=== PATIENT | female | born 1945 | race Caucasian/White ===

== ENCOUNTER 2019-02-24 19:42 | Inpatient (IN) | payer OTHER ==
--- NOTE | 2019-02-24 21:20 | PDOC ---
History of Present Illness - General Chief Complaint: Rectal Bleed Stated Complaint: GI BLEED Time Seen by Provider: 02/24/19 20:05 - History of Present Illness Initial Comments: 02/24/19 22:10 74F with pmh of thyroid nodule, hypertension presents with 3 episodes of bloody red stools today. She felt fatigued and dizzzy last night, went to get cleared for thyroid surgery the next day and was found to be hypotensive in the 80's, after which she noticed the blood in her stool and was sent to inspector cold working who saw that her platelet level was low. (does't remember how low) Patient also states that she finished a 7 day course of Ciprofloxacin last week for UTI. History of moderate alcohol drinking (a few glasses of wine a day, sometimes more, sometimes less), that she recently cut back to 2 glasses a day. Denies being currently symptomatic. 02/24/19 22:46 PCP: [facility] 02/24/19 23:46 Past History - Past Medical History Allergies/Adverse Reactions: Allergies Allergy/AdvReac Type Severity Reaction Status Date / Time codeine [Codeine] Allergy Intermediate Verified 02/24/19 20:24 Home Medications: Ambulatory Orders Aspirin Coated [Ecotrin] 81 mg PO DAILY 05/05/12 Calcitonin-[place] 3.7 ml NS DAILY 05/05/12 Calcium/Magnesium/Vit D3 [Calcium 500 mg Tablet] 1,000 mg PO DAILY 05/05/12 Cholecalciferol (Vitamin D3) [Vitamin D] 1,000 unit PO DAILY 05/05/12 Multivitamin [Multivitamins] 1 each PO DAILY 05/05/12 Timolol 0.25% [Timoptic 0.25%] 1 drop OU DAILY 05/05/12 Atorvastatin Ca [Lipitor] 10 mg PO HS 02/24/19 Nebivolol HCl [Bystolic] 10 mg PO DAILY 02/24/19 Anemia: No Asthma: No Cancer: No Cardiac Disorders: No CVA: No COPD: No CHF: No Dementia: No Diabetes: Yes (BORDERLINE) GI Disorders: No Disorders: No HTN: Yes Hypercholesterolemia: Yes Liver Disease: No Seizures: No Thyroid Disease: No - Surgical History Abdominal Surgery: Yes (GASTRIC BYPASS) Appendectomy: Yes Cardiac Surgery: No Cholecystectomy: No Lung Surgery: No Neurologic Surgery: No Orthopedic Surgery: Yes (FX LEG, RIGHT) - Suicide/Smoking/Psychosocial Hx Smoking History: Never smoked Have you smoked in the past 12 months: No Number of Cigarettes Smoked Daily: 0 If you are a former smoker, when did you quit?: 1986 Hx Alcohol Use: No Drug/Substance Use Hx: No Substance Use Type: Alcohol Hx Substance Use Treatment: No Review of Systems - Review of Systems Able to Perform ROS?: Yes Is the patient limited Georgian proficient: No Constitutional: Yes: See HPI HEENTM: No: Symptoms Reported Respiratory: No: Symptoms reported Cardiac (ROS): No: Symptoms Reported ABD/GI: Yes: See HPI : No: Symptoms Reported Musculoskeletal: No: Symptoms Reported All Other Systems: Reviewed and Negative *Physical Exam - Vital Signs Last Vital Signs Temp Pulse Resp BP Pulse Ox 97.5 F L 66 18 113/70 96 02/24/19 19:50 02/24/19 19:50 02/24/19 19:50 02/24/19 19:50 02/24/19 19:50 - Physical Exam General Appearance: Yes: Nourished, Appropriately Dressed. No: Apparent Distress HEENT: positive: EOMI, LUCIANO, Normal ENT Inspection Respiratory/Chest: positive: Lungs Clear, Normal Breath Sounds. negative: Chest Tender, Respiratory Distress Cardiovascular: positive: Regular Rhythm, Regular Rate, S1, S2 Gastrointestinal/Abdominal: positive: Normal Bowel Sounds, Flat, Soft. negative : Tender Rectal Exam: positive: normal rectal tone, heme positive stool. negative: normal exam (red blood on exam. ), hemorrhoids Musculoskeletal: positive: Normal Inspection. negative: CVA Tenderness Extremity: positive: Normal Capillary Refill, Normal Inspection, Normal Range of Motion Integumentary: positive: Normal Color, Dry, Warm Neurologic: positive: Fully Oriented, Alert, Normal Mood/Affect ED Treatment Course - LABORATORY CBC & Chemistry Diagram: 02/24/19 20:58 02/24/19 20:44 Medical Decision Making - Medical Decision Making 02/24/19 22:40 74f with pmh of thyroid nodule presents with lower GI bleed since this morning. No recent bloodwork to compare to but patient is mildly anemic with hgb of 10, platelets at 114, slightly elevated INR at 1.24. 02/24/19 22:42 Will give some fluids as patient is also prerenal, no need to transfuse at this time. Will admit for lower GI bleed with GI consult. *DC/Admit/Observation/Transfer Diagnosis at time of Disposition: Lower GI bleed - Discharge Dispostion Condition at time of disposition: Fair - Referrals - Patient Instructions - Post Discharge Activity
[2019-02-24 21:28] LABS: INR 1.24 (0.83-1.09); PROTHROMBIN TIME (PATIENT) 14.7 SEC (9.7-13.0)
[2019-02-24 21:37] LABS: BASO % 1.2 % (0-2.0); EOS % 0.4 % (0-4.5); HEMATOCRIT 28.9 % (32.4-45.2); LYMPH % 40.7 % (8-40); MCH 34.5 pg (25.7-33.7); MCHC 34.5 g/dl (32.0-36.0); MEAN CELL VOLUME 99.8 fl (80-96); MEAN PLT VOLUME 9.7 fl (7.5-11.1); MONO % 11.9 % (3.8-10.2); NEUT % 45.8 % (42.8-82.8); PLATELET COUNT 114 K/MM3 (134-434); RDW 13.2 % (11.6-15.6); WHITE BLOOD COUNT 6.3 K/mm3 (4.0-10.0)
[2019-02-24 21:48] LABS: ALBUMIN 2.7 g/dl (3.4-5.0); BILIRUBIN,TOTAL 0.7 mg/dL (0.2-1); BLOOD UREA NITROGEN 28.1 mg/dL (7-18); CALCIUM 8.2 mg/dL (8.5-10.1); CREATININE 0.6 mg/dL (0.55-1.3); POTASSIUM 4.2 mmol/L (3.5-5.1); TOT PROT 5.2 g/dl (6.4-8.2)
[2019-02-24] MEDS ORDERED: SODIUM CHLORIDE 1,000 ML IV STA (22:44)
[2019-02-24 23:03] LABS: ANISOCYTOSIS 0; MACROCYTOSIS 0; PLATELET ESTIMATE DECREASED
--- NOTE | 2019-02-24 23:10 | PDOC ---
Documentation entered by America Schuler SCRIBE, acting as scribe for Sandy Crook DO. Sandy Crook DO: This documentation has been prepared by the scribe, America Schuler SCRIBE, under my direction and personally reviewed by me in its entirety. I confirm that the documentation accurately reflects all work, treatment, procedures, and medical decision making performed by me. Attending Attestation - Resident Resident Name: Bryant Davila - ED Attending Attestation I have performed the following: I have examined & evaluated the patient, The case was reviewed & discussed with the resident, I agree w/resident's findings & plan, Exceptions are as noted - HPI HPI: 02/24/19 23:04 The patient is a 74-year-old female with a past medical history significant for HTN and HLD presents to the emergency department with bright red blood per rectum. The patient reports shes been having episodes of bright red blood stool all day, and reports leaking onto the floor. Denies fever or chills. - Physicial Exam PE: 02/24/19 22:40 GENERAL: Awake, alert, and fully oriented, in no acute distress HEAD: No signs of trauma EYES: PERRLA, EOMI, sclera anicteric, conjunctiva clear ENT: Auricles normal inspection, hearing grossly normal, nares patent, Moist mucosa NECK: Normal ROM, supple, no lymphadenopathy, JVD, or masses LUNGS: Breath sounds equal, clear to auscultation bilaterally. No wheezes, and no crackles HEART: Regular rate and rhythm. ABDOMEN: Soft, nontender. No guarding, no rebound. No masses EXTREMITIES: Normal range of motion, no lower extremity edema. NEUROLOGICAL: No focal deficit. SKIN: Warm, Dry, normal turgor, no rashes or lesions noted. - Medical Decision Making 02/24/19 23:05 I, Dr. Sandy Crook DO, attest that this document has been prepared under my direction and personally reviewed by me in its entirety. I further attest, that it accurately reflects all work, treatment, procedures and medical decision -making performed by me. 02/24/19 23:05 a/p: 74yo female scheduled for thyroid nodule surgery with an episode of low plts and LGIB today -pt states rectal bleeding today -saw heme today who dx with low plts, sent for further eval - pt unsure of plt count -pmd dr. diana -pt c/o feeling dizzy x 2 days -diarrhea yesterday, rectal bleeding today -brbr -no active bleeding in ER -no vomiting -no cp/sob -will send labs, type and screen -rectal + per resident for blood on the glove -pt will need admission for rectal bleeding and LGIB -no anticoags, no antiplts 02/24/19 23:09 plts 114 hgb 10 no active bleeding in ER, but will need admission and gi eval no abd ttp 02/24/19 23:10 microblog sent to [facility] hawk diana for admission for rectal bleeding 02/24/19 23:28 case discussed with Ginger Mehta NP who accepts pt under Dr. Diana *DC/Admit/Observation/Transfer Diagnosis at time of Disposition: Lower GI bleed - Discharge Dispostion Condition at time of disposition: Fair Decision to Admit order: Yes - Referrals Referrals: Haley Diana MD [Primary Care Provider] - - Patient Instructions - Post Discharge Activity Heart Score/ECG Review - ECG Intrepretation Comment:: 02/24/19 23:09 sinus at 68, nl axis, nl interval, no acute st/t wave findings
[2019-02-25] MEDS ORDERED: SODIUM CHLORIDE 1,000 ML IV SCH (01:15)
--- NOTE | 2019-02-25 01:22 | HP ---
Admitting History and Physical - Primary Care Physician PCP: Haley Wellington - Admission Chief Complaint: Rectal Bleeding History of Present Illness: This is a 74 y/o woman with a PMHx of HTN, HLD, Thyroid Nodule. Who presents to the ED with BRBPR 3 episodes. She felt fatigued and dizzzy last night, went to get cleared for thyroid surgery the next day and was found to be hypotensive in the 80's, after which she noticed the blood in her stool and was sent to [facility] solution architect who saw that her platelet level was low. (doesn't remember how low) Patient also states that she finished a 7 day course of Ciprofloxacin last week for UTI. History of moderate alcohol drinking (a few glasses of wine a day, sometimes more, sometimes less), that she recently cut back to 2 glasses a day. History Source: Patient Limitations to Obtaining History: No Limitations - Past Medical History Cardiovascular: Yes: HTN, Hyperlipdemia - Smoking History Smoking history: Never smoked Have you smoked in the past 12 months: No Aproximately how many cigarettes per day: 0 If you are a former smoker, when did you quit?: 1986 - Alcohol/Substance Use Hx Alcohol Use: No History of Substance Use: reports: None - Social History Usual Living Arrangement: Yes: With Spouse ADL: Independent History of Recent Travel: No Home Medications - Allergies Allergies/Adverse Reactions: Allergies Allergy/AdvReac Type Severity Reaction Status Date / Time codeine [Codeine] Allergy Intermediate Verified 02/24/19 20:24 - Home Medications Home Medications: Ambulatory Orders Aspirin Coated [Ecotrin] 81 mg PO DAILY 05/05/12 Calcitonin-[place] 3.7 ml NS DAILY 05/05/12 Calcium/Magnesium/Vit D3 [Calcium 500 mg Tablet] 1,000 mg PO DAILY 05/05/12 Cholecalciferol (Vitamin D3) [Vitamin D] 1,000 unit PO DAILY 05/05/12 Multivitamin [Multivitamins] 1 each PO DAILY 05/05/12 Timolol 0.25% [Timoptic 0.25%] 1 drop OU DAILY 05/05/12 Atorvastatin Ca [Lipitor] 10 mg PO HS 02/24/19 Nebivolol HCl [Bystolic] 10 mg PO DAILY 02/24/19 Family Disease History - Family Disease History Family History: Unable to Obtain Review of Systems - Review of Systems Constitutional: reports: No Symptoms Eyes: reports: No Symptoms HENT: reports: No Symptoms Neck: reports: No Symptoms Cardiovascular: reports: No Symptoms Respiratory: reports: No Symptoms Gastrointestinal: reports: Rectal Bleeding Genitourinary: reports: No Symptoms Breasts: reports: No Symptoms Reported Musculoskeletal: reports: No Symptoms Integumentary: reports: No Symptoms Neurological: reports: No Symptoms Endocrine: reports: No Symptoms Hematology/Lymphatic: reports: No Symptoms Psychiatric: reports: No Symptoms Physical Examination Vital Signs: Vital Signs Temperature 97.5 F L 02/24/19 19:50 Pulse Rate 66 02/24/19 19:50 Respiratory Rate 18 02/24/19 19:50 Blood Pressure 113/70 02/24/19 19:50 O2 Sat by Pulse Oximetry (%) 96 02/24/19 19:50 Constitutional: Yes: Well Nourished, No Distress, Calm Eyes: Yes: WNL, Conjunctiva Clear, EOM Intact HENT: Yes: WNL, Atraumatic, Normocephalic Neck: Yes: WNL, Supple, Trachea Midline Cardiovascular: Yes: WNL, Regular Rate and Rhythm, S1, S2 Respiratory: Yes: WNL, Regular, CTA Bilaterally Gastrointestinal: Yes: Normal Bowel Sounds, Soft, Rectal Bleeding ...Rectal Exam: Yes: Guaiac Positive Renal/: Yes: WNL Breast(s): Yes: WNL Musculoskeletal: Yes: WNL Extremities: Yes: WNL Edema: No Peripheral Pulses WNL: Yes Neurological: Yes: WNL, Alert, Oriented, Cran Nerves II-XII Intact ...Motor Strength: WNL Psychiatric: Yes: WNL, Alert, Oriented Labs: CBC, BMP 02/24/19 20:58 02/24/19 20:44 Laboratory Results - last 24 hr 02/24/19 02/24/19 02/24/19 20:44 20:44 20:58 WBC RBC Hgb Hct MCV MCH MCHC RDW Plt Count MPV Absolute Neuts (auto) Neutrophils % Neutrophils % (Manual) Band Neutrophils % Lymphocytes % Lymphocytes % (Manual) Monocytes % Monocytes % (Manual) Eosinophils % Eosinophils % (Manual) Basophils % Basophils % (Manual) Myelocytes % (Man) Promyelocytes % (Man) Blast Cells % (Manual) Nucleated RBC % Metamyelocytes Hypochromia Platelet Estimate Polychromasia Poikilocytosis Anisocytosis Microcytosis Macrocytosis PT with INR INR PTT (Actin FS) Cancelled Sodium 138 Potassium 4.2 Chloride 105 Carbon Dioxide 25 Anion Gap 8 BUN 28.1 H Creatinine 0.6 Est GFR (CKD-EPI)AfAm 105.54 Est GFR (CKD-EPI)NonAf 91.06 Random Glucose 134 H Calcium 8.2 L Total Bilirubin 0.7 AST 28 ALT 25 Alkaline Phosphatase 96 Troponin I < 0.02 Total Protein 5.2 L Albumin 2.7 L Stool Occult Blood Blood Type Antibody Screen 02/24/19 02/24/19 02/24/19 20:58 20:58 20:58 WBC 6.3 RBC 2.90 L Hgb 10.0 L Hct 28.9 L D MCV 99.8 H MCH 34.5 H MCHC 34.5 RDW 13.2 Plt Count 114 L MPV 9.7 D Absolute Neuts (auto) 2.9 Neutrophils % 45.8 D Neutrophils % (Manual) 50.5 Band Neutrophils % 0.0 Lymphocytes % 40.7 H D Lymphocytes % (Manual) 32.7 Monocytes % 11.9 H Monocytes % (Manual) 12 H Eosinophils % 0.4 Eosinophils % (Manual) 2.0 Basophils % 1.2 Basophils % (Manual) 0.0 Myelocytes % (Man) 0 Promyelocytes % (Man) 0 Blast Cells % (Manual) 0 Nucleated RBC % 0 Metamyelocytes 0 Hypochromia 0 Platelet Estimate Decreased Polychromasia 0 Poikilocytosis 0 Anisocytosis 0 Microcytosis 0 Macrocytosis 0 PT with INR 14.70 H INR 1.24 H PTT (Actin FS) 28.0 Sodium Potassium Chloride Carbon Dioxide Anion Gap BUN Creatinine Est GFR (CKD-EPI)AfAm Est GFR (CKD-EPI)NonAf Random Glucose Calcium Total Bilirubin AST ALT Alkaline Phosphatase Troponin I Total Protein Albumin Stool Occult Blood Blood Type A POSITIVE Antibody Screen Negative 02/24/19 22:05 WBC RBC Hgb Hct MCV MCH MCHC RDW Plt Count MPV Absolute Neuts (auto) Neutrophils % Neutrophils % (Manual) Band Neutrophils % Lymphocytes % Lymphocytes % (Manual) Monocytes % Monocytes % (Manual) Eosinophils % Eosinophils % (Manual) Basophils % Basophils % (Manual) Myelocytes % (Man) Promyelocytes % (Man) Blast Cells % (Manual) Nucleated RBC % Metamyelocytes Hypochromia Platelet Estimate Polychromasia Poikilocytosis Anisocytosis Microcytosis Macrocytosis PT with INR INR PTT (Actin FS) Sodium Potassium Chloride Carbon Dioxide Anion Gap BUN Creatinine Est GFR (CKD-EPI)AfAm Est GFR (CKD-EPI)NonAf Random Glucose Calcium Total Bilirubin AST ALT Alkaline Phosphatase Troponin I Total Protein Albumin Stool Occult Blood Positive Blood Type Antibody Screen Imaging - Results Chest X-ray: Pending EKG: Image Reviewed Problem List - Problems (1) Lower GI bleed Assessment/Plan: Cardiac Monitoring Stool Occult + Hgb 10 baseline 13 Monitor CBC Appreciate GI consult NPO IVF Monitor vitals Code(s): K92.2 - GASTROINTESTINAL HEMORRHAGE, UNSPECIFIED (2) HTN (hypertension) Assessment/Plan: stable Monitor BP Will hold home meds for now secondary to GIB Code(s): I10 - ESSENTIAL (PRIMARY) HYPERTENSION (3) HLD (hyperlipidemia) Assessment/Plan: Hold meds for now- GIB Code(s): E78.5 - HYPERLIPIDEMIA, UNSPECIFIED Assessment/Plan This is a 74 y/o woman with a PMHx of HTN, HLD. Admitted to Telemetry for GI Bleed for further evaluation of their emergent condition. Plan: See Problem List FEN NS@75ml/hr Replete lytes prn NPO DVT ppx OOB SCDs Hold Ac secondary to GIB Dispo: Requires Inpatient Care Addendum: Patient ambulated to bathroom unassisted and was found on the floor in the hallway spinal precautions initiated- [place] Collar applied by ED staff Fall Exam performed CT Head, CT C- Spin ordered-pending Visit type - Emergency Visit Emergency Visit: Yes ED Registration Date: 02/24/19 Care time: The patient presented to the Emergency Department on the above date and was hospitalized for further evaluation of their emergent condition. - New Patient This patient is new to me today: Yes Date on this admission: 02/25/19 - Critical Care Critical Care patient: No
[2019-02-25] MEDS ORDERED: LACTATED RINGERS SOLUTION 1000 ML INFUS.BAG IV ONE (02:28)
--- NOTE | 2019-02-25 02:29 | FALL ---
Fall Exam - Event Witnessed fall: No Location of Fall: Hallway Fall from: While ambulating - Pre-Fall Mental Status: Alert Current Medications: Current Medications Generic Name Dose Route Start Last Admin Trade Name Meng PRN Reason Stop Dose Admin Sodium Chloride 1,000 mls @ 75 mls/hr 02/25/19 01:15 02/25/19 01:51 Normal Saline - IV 75 mls/hr ASDIR RASHI Administration - Post-Fall Patient Outcome: Pain Only (neck, back) Exam Findings: AAOx2, Atraumatic, Normocephalic, Lungs- CTAB, Heart- S1, S2, Neck- TN [place] Collar, Back- TN to palpation, FROM of extremities- no shortening, Pelvic/Hip- non tender Treatment: Ice Pack Vital Signs: Vital Signs Temperature 97.5 F L 02/24/19 19:50 Pulse Rate 66 02/24/19 19:50 Respiratory Rate 18 02/24/19 19:50 Blood Pressure 113/70 02/24/19 19:50 O2 Sat by Pulse Oximetry (%) 96 02/24/19 19:50 LOC Post-Fall: Alert Identify factors for HIGH RISK for Head Injury: Known to have hit head Critical Care Total Critical Care Time (in minutes): 32 Critical Care Statement: The care of this patient involved high complexity decision making to prevent further life threatening deterioration of the patient 's condition and/or to evaluate & treat vital organ system(s) failure or risk of failure.
[2019-02-25 02:56] LABS: HEMOGLOBIN 7.9 GM/dL (10.7-15.3); WHITE BLOOD COUNT 6.7 K/mm3 (4.0-10.0)
--- NOTE | 2019-02-25 03:00 | HOSP ---
Subjective - Review of Symptoms Events since last encounter: Hospitalist Encounter Notified by RN that the patient fell. Was asked to evaluate. Patient ambulated to bathroom unassisted and was found on the floor in the hallway spinal precautions initiated- [place] Collar applied by ED staff Fall Exam performed CT Head, CT C- Spin ordered-pending Subjective: Arrived to bedside, patient is alert, awake and oriented reports attempting to go bathroom and does not recall falling. Patient is hypotensive 80/50, dark red blood note to gown, sheets and rectum. Per RN- Patient ambulated to bathroom unassisted and was found on the floor in the hallway spinal precautions initiated- [place] Collar applied by ED staff Fall Exam performed see EMR Plan: CT Head, CT C- Spin ordered-pending CBC, BMP, PT/INR stat 2 Large Bore IVs NS bolus Type N cross 2 Units PRBCs Addendum: 07:20 Arrived to ED, Day RN informed me that the patient is hypotensive 70s/30s and symptomatic- dizziness 1 unit PRBC completed 2nd unit pending Patient meets criteria for upgrade to ICU Discussed with Dr. Neto Davila, ICU resident who will come down to assess pt. Patient accepted to ICU Call placed to Dr. Khan's service NS bolus ordered Condition Guarded Physical Examination Vital Signs: Vital Signs Temperature 97.5 F L 02/24/19 19:50 Pulse Rate 66 02/24/19 19:50 Respiratory Rate 18 02/24/19 19:50 Blood Pressure 113/70 02/24/19 19:50 O2 Sat by Pulse Oximetry (%) 96 02/24/19 19:50 Hospitalist Encounter Outcome: Head CT- no acute intracranial hemorrhage, no edema, no midline shift. no mass effect or skull fx C-Spine CT- neg C- spine fx or malalignment, +enlarged right thyroid Critical Care Total Critical Care Time (in minutes): 45 Critical Care Statement: The care of this patient involved high complexity decision making to prevent further life threatening deterioration of the patient 's condition and/or to evaluate & treat vital organ system(s) failure or risk of failure.
[2019-02-25 03:07] LABS: EOS % 0.6 % (0-4.5); HEMATOCRIT 23.6 % (32.4-45.2); LYMPH % 49.8 % (8-40); MCH 33.8 pg (25.7-33.7); MCHC 33.4 g/dl (32.0-36.0); MEAN CELL VOLUME 101.2 fl (80-96); MONO % 12.3 % (3.8-10.2); NEUT % 35.3 % (42.8-82.8); PLATELET COUNT 108 K/MM3 (134-434); RBC 2.33 M/mm3 (3.60-5.2); RDW 13.5 % (11.6-15.6)
[2019-02-25 03:26] LABS: BLOOD UREA NITROGEN 29.3 mg/dL (7-18); CALCIUM 7.8 mg/dL (8.5-10.1); CREATININE 0.6 mg/dL (0.55-1.3); POTASSIUM 4.3 mmol/L (3.5-5.1)
[2019-02-25 07:27] LABS: BASO % 1.2 % (0-2.0); EOS % 0.2 % (0-4.5); HEMATOCRIT 19.8 % (32.4-45.2); LYMPH % 36.7 % (8-40); MCH 34.3 pg (25.7-33.7); MCHC 34.7 g/dl (32.0-36.0); MEAN PLT VOLUME 10.1 fl (7.5-11.1); MONO % 8.2 % (3.8-10.2); NEUT % 53.7 % (42.8-82.8); PLATELET COUNT 94 K/MM3 (134-434); RDW 13.5 % (11.6-15.6); WHITE BLOOD COUNT 7.1 K/mm3 (4.0-10.0)
[2019-02-25 07:28] LABS: CALCIUM 7.4 mg/dL (8.5-10.1); CREATININE 0.6 mg/dL (0.55-1.3); POTASSIUM 4.7 mmol/L (3.5-5.1)
[2019-02-25] MEDS ORDERED: SODIUM CHLORIDE 1,000 ML IV STA ×2 (07:35→09:19)
[2019-02-25 07:48] LABS: HEMOGLOBIN 6.9 GM/dL (10.7-15.3)
--- NOTE | 2019-02-25 07:50 | PN ---
Progress Note, Physician History of Present Illness: 74 y/o woman with a PMHx of HTN, HLD, Thyroid Nodule. Who presents to the ED with BRBPR 3 episodes. She felt fatigued and dizzzy last night and came to er pt noted with new onset thrombocytopenia and was sent to geriatrics physician Patient also states that she finished a 7 day course of Ciprofloxacin last week for UTI. - Current Medication List Current Medications: Active Medications Chlorhexidine Gluconate (Hibiclens For Decolonization -) 1 applic TP HS RASHI Sodium Chloride (Normal Saline -) 1,000 mls @ 75 mls/hr IV ASDIR RASHI Last Admin: 02/25/19 01:51 Dose: 75 mls/hr Sodium Chloride (Normal Saline -) 1,000 mls @ 1,000 mls/hr IV ASDIR STA Stop: 02/25/19 08:34 Vasopressin 50 units/ Sodium (Chloride) 100 mls @ 4 mls/hr IVPB ASDIR RASHI; Protocol Mupirocin (Bactroban Ointment (For Decolonization) -) 1 applic NS BID RASHI Stop: 03/02/19 09:59 - Objective Vital Signs: Vital Signs Temperature 97.9 F 02/25/19 06:38 Pulse Rate 73 02/25/19 06:38 Respiratory Rate 20 02/25/19 06:38 Blood Pressure 74/35 L 02/25/19 06:38 O2 Sat by Pulse Oximetry (%) 100 02/25/19 06:38 Cardiovascular: Yes: Regular Rate and Rhythm Respiratory: Yes: Regular, CTA Bilaterally Gastrointestinal: Yes: Normal Bowel Sounds, Soft. No: Tenderness ...Rectal Exam: Yes: Other (brbpr) Labs: CBC, BMP 02/25/19 06:10 02/25/19 06:10 INR, PTT INR 1.24 (0.83-1.09) H 02/24/19 20:58 Problem List - Problems (1) GI bleed Assessment/Plan: -Transfuse prbc -icu care -h/o etoh abuse--r/o ulcer/varices -ivf -ppi drip -stat gi consult--d/w dr lopez Code(s): K92.2 - GASTROINTESTINAL HEMORRHAGE, UNSPECIFIED (2) Anemia Assessment/Plan: transfuse -as above Code(s): D64.9 - ANEMIA, UNSPECIFIED (3) Hypotension Assessment/Plan: due to gi bleed transfuse maintain bp with pressers Code(s): I95.9 - HYPOTENSION, UNSPECIFIED (4) HLD (hyperlipidemia) Code(s): E78.5 - HYPERLIPIDEMIA, UNSPECIFIED (5) HTN (hypertension) Assessment/Plan: hold meds due to above Code(s): I10 - ESSENTIAL (PRIMARY) HYPERTENSION (6) Carotid stenosis Assessment/Plan: asymptomatic Code(s): I65.29 - OCCLUSION AND STENOSIS OF UNSPECIFIED CAROTID ARTERY
--- NOTE | 2019-02-25 08:21 | CONSULT ---
Consultation: REQUESTING PROVIDER: CONSULT REQUEST: We have been asked to medically evaluate this patient for ( specify). HISTORY OF PRESENT ILLNESS: REVIEW OF SYSTEMS: CONSTITUTIONAL: Absent: fever, chills, diaphoresis, generalized weakness, malaise, loss of appetite, weight change HEENT: Absent: rhinorrhea, nasal congestion, throat pain, throat swelling, difficulty swallowing, mouth swelling, ear pain, eye pain, visual changes CARDIOVASCULAR: Absent: chest pain, syncope, palpitations, irregular heart rate, lightheadedness , peripheral edema RESPIRATORY: Absent: cough, shortness of breath, dyspnea with exertion, orthopnea, wheezing, stridor, hemoptysis GASTROINTESTINAL: Absent: abdominal pain, abdominal distension, nausea, vomiting, diarrhea, constipation, melena, hematochezia GENITOURINARY: Absent: dysuria, frequency, urgency, hesitancy, hematuria, flank pain, genital pain MUSCULOSKELETAL: Absent: myalgia, arthralgia, joint swelling, back pain, neck pain SKIN: Absent: rash, itching, pallor HEMATOLOGIC/IMMUNOLOGIC: Absent: easy bleeding, easy bruising, lymphadenopathy, frequent infections ENDOCRINE: Absent: unexplained weight gain, unexplained weight loss, heat intolerance, cold intolerance NEUROLOGIC: Absent: headache, focal weakness or paresthesias, dizziness, unsteady gait, seizure, mental status changes, bladder or bowel incontinence PSYCHIATRIC: Absent: anxiety, depression, suicidal or homicidal ideation, hallucinations. PHYSICAL EXAMINATION Vital Signs - 24 hr 02/24/19 02/25/19 02/25/19 19:50 00:00 02:40 Temperature 97.5 F L 97.9 F Pulse Rate 66 69 Pulse Rate [ Right Radial] Respiratory 18 22 H Rate Blood Pressure 113/70 107/52 L Blood Pressure [Left Arm] O2 Sat by Pulse 96 97 Oximetry (%) 02/25/19 02/25/19 02/25/19 04:45 04:58 06:38 Temperature 97.4 F L 97.4 F L 97.9 F Pulse Rate 77 Pulse Rate [ 74 73 Right Radial] Respiratory 17 17 20 Rate Blood Pressure 80/54 L Blood Pressure 86/66 L 74/35 L [Left Arm] O2 Sat by Pulse 98 100 Oximetry (%) GENERAL: Awake, alert, and fully oriented, in no acute distress. HEAD: Normal with no signs of trauma. EYES: Pupils equal, round and reactive to light, extraocular movements intact, sclera anicteric, conjunctiva clear. No lid lag. EARS, NOSE, THROAT: Ears normal, nares patent, oropharynx clear without exudates. Moist mucous membranes. NECK: Normal range of motion, supple without lymphadenopathy, JVD, or masses. LUNGS: Breath sounds equal, clear to auscultation bilaterally. No wheezes, and no crackles. No accessory muscle use. HEART: Regular rate and rhythm, normal S1 and S2 without murmur, rub or gallop. ABDOMEN: Soft, nontender, not distended, normoactive bowel sounds, no guarding, no rebound, no masses. No hepatomegaly or splenomegaly. MUSCULOSKELETAL: Normal range of motion at all joints. No bony deformities or tenderness. No CVA tenderness. UPPER EXTREMITIES: 2+ pulses, warm, well-perfused. No cyanosis. No clubbing. Cap refill <2 seconds. No peripheral edema. LOWER EXTREMITIES: 2+ pulses, warm, well-perfused. No calf tenderness. No peripheral edema. NEUROLOGICAL: Cranial nerves II-XII intact. Normal speech. Normal gait. PSYCHIATRIC: Cooperative. Good eye contact. Appropriate mood and affect. SKIN: Warm, dry, normal turgor, no rashes or lesions noted. Laboratory Results - last 24 hr 02/24/19 02/24/19 02/24/19 20:44 20:44 20:58 WBC RBC Hgb Hct MCV MCH MCHC RDW Plt Count MPV Absolute Neuts (auto) Total Counted Neutrophils % Neutrophils % (Manual) Band Neutrophils % Lymphocytes % Lymphocytes % (Manual) Monocytes % Monocytes % (Manual) Eosinophils % Eosinophils % (Manual) Basophils % Basophils % (Manual) Myelocytes % (Man) Promyelocytes % (Man) Blast Cells % (Manual) Nucleated RBC % Metamyelocytes Hypochromia Platelet Estimate Polychromasia Poikilocytosis Anisocytosis Microcytosis Macrocytosis PT with INR INR PTT (Actin FS) Cancelled Sodium 138 Potassium 4.2 Chloride 105 Carbon Dioxide 25 Anion Gap 8 BUN 28.1 H Creatinine 0.6 Est GFR (CKD-EPI)AfAm 105.54 Est GFR (CKD-EPI)NonAf 91.06 Random Glucose 134 H Calcium 8.2 L Total Bilirubin 0.7 AST 28 ALT 25 Alkaline Phosphatase 96 Troponin I < 0.02 Total Protein 5.2 L Albumin 2.7 L Stool Occult Blood Blood Type Antibody Screen Crossmatch 02/24/19 02/24/19 02/24/19 20:58 20:58 20:58 WBC 6.3 RBC 2.90 L Hgb 10.0 L Hct 28.9 L D MCV 99.8 H MCH 34.5 H MCHC 34.5 RDW 13.2 Plt Count 114 L MPV 9.7 D Absolute Neuts (auto) 2.9 Total Counted Neutrophils % 45.8 D Neutrophils % (Manual) 50.5 Band Neutrophils % 0.0 Lymphocytes % 40.7 H D Lymphocytes % (Manual) 32.7 Monocytes % 11.9 H Monocytes % (Manual) 12 H Eosinophils % 0.4 Eosinophils % (Manual) 2.0 Basophils % 1.2 Basophils % (Manual) 0.0 Myelocytes % (Man) 0 Promyelocytes % (Man) 0 Blast Cells % (Manual) 0 Nucleated RBC % 0 Metamyelocytes 0 Hypochromia 0 Platelet Estimate Decreased Polychromasia 0 Poikilocytosis 0 Anisocytosis 0 Microcytosis 0 Macrocytosis 0 PT with INR 14.70 H INR 1.24 H PTT (Actin FS) 28.0 Sodium Potassium Chloride Carbon Dioxide Anion Gap BUN Creatinine Est GFR (CKD-EPI)AfAm Est GFR (CKD-EPI)NonAf Random Glucose Calcium Total Bilirubin AST ALT Alkaline Phosphatase Troponin I Total Protein Albumin Stool Occult Blood Blood Type A POSITIVE Antibody Screen Negative Crossmatch See Detail 02/24/19 02/25/19 02/25/19 22:05 02:47 02:47 WBC 6.7 RBC 2.33 L Hgb 7.9 L Hct 23.6 L D MCV 101.2 H MCH 33.8 H MCHC 33.4 RDW 13.5 Plt Count 108 L MPV 10.0 Absolute Neuts (auto) 2.4 Total Counted 100 Neutrophils % 35.3 L D Neutrophils % (Manual) 37.0 L Band Neutrophils % Lymphocytes % 49.8 H D Lymphocytes % (Manual) 50.0 H D Monocytes % 12.3 H Monocytes % (Manual) 13 H Eosinophils % 0.6 Eosinophils % (Manual) Basophils % 2.0 Basophils % (Manual) Myelocytes % (Man) Promyelocytes % (Man) Blast Cells % (Manual) Nucleated RBC % 0 Metamyelocytes Hypochromia Platelet Estimate Polychromasia Poikilocytosis Anisocytosis Microcytosis Macrocytosis PT with INR INR PTT (Actin FS) Sodium 139 Potassium 4.3 Chloride 108 H Carbon Dioxide 26 Anion Gap 5 L BUN 29.3 H Creatinine 0.6 Est GFR (CKD-EPI)AfAm 105.54 Est GFR (CKD-EPI)NonAf 91.06 Random Glucose 150 H Calcium 7.8 L Total Bilirubin AST ALT Alkaline Phosphatase Troponin I Total Protein Albumin Stool Occult Blood Positive Blood Type Antibody Screen Crossmatch 02/25/19 02/25/19 06:10 06:10 WBC 7.1 RBC 2.00 L Hgb 6.9 L* Hct 19.8 L D MCV 99.0 H MCH 34.3 H MCHC 34.7 RDW 13.5 Plt Count 94 L MPV 10.1 Absolute Neuts (auto) 3.8 Total Counted Neutrophils % 53.7 D Neutrophils % (Manual) Band Neutrophils % Lymphocytes % 36.7 D Lymphocytes % (Manual) Monocytes % 8.2 Monocytes % (Manual) Eosinophils % 0.2 Eosinophils % (Manual) Basophils % 1.2 Basophils % (Manual) Myelocytes % (Man) Promyelocytes % (Man) Blast Cells % (Manual) Nucleated RBC % 0 Metamyelocytes Hypochromia Platelet Estimate Polychromasia Poikilocytosis Anisocytosis Microcytosis Macrocytosis PT with INR INR PTT (Actin FS) Sodium 140 Potassium 4.7 Chloride 110 H Carbon Dioxide 23 Anion Gap 7 L BUN 29.0 H Creatinine 0.6 Est GFR (CKD-EPI)AfAm 105.54 Est GFR (CKD-EPI)NonAf 91.06 Random Glucose 181 H Calcium 7.4 L Total Bilirubin AST ALT Alkaline Phosphatase Troponin I Total Protein Albumin Stool Occult Blood Blood Type Antibody Screen Crossmatch Active Medications Generic Name Dose Route Start Last Admin Trade Name Freq PRN Reason Stop Dose Admin Chlorhexidine Gluconate 1 applic 02/25/19 22:00 Hibiclens For Decolonization - TP HS RASHI Sodium Chloride 1,000 mls @ 75 mls/hr 02/25/19 01:15 02/25/19 01:51 Normal Saline - IV 75 mls/hr ASDIR RASHI Administration Sodium Chloride 1,000 mls @ 1,000 mls/hr 02/25/19 07:35 02/25/19 07:35 Normal Saline - IV 02/25/19 08:34 1,000 mls/hr ASDIR STA Administration Vasopressin 50 units/ Sodium 100 mls @ 4 mls/hr 02/25/19 08:30 Chloride IVPB ASDIR RASHI Protocol 2 UNITS/HR Mupirocin 1 applic 02/25/19 10:00 Bactroban Ointment (For Decolonization) - NS 03/02/19 09:59 BID [facility] ASSESSMENT/PLAN: Dispo: We will continue to follow the patient. Thank you for this consultative opportunity. ATTENDING PHYSICIAN STATEMENT I saw and evaluated the patient. I reviewed the resident's note and discussed the case with the resident. I agree with the resident's findings and plan as documented. SUBJECTIVE: OBJECTIVE: ASSESSMENT AND PLAN:
[2019-02-25] MEDS ORDERED: VASOPRESSIN 50 UNITS in SODIUM CHLORIDE 97.5 ML IVPB SCH (08:30)
--- NOTE | 2019-02-25 08:58 | CON.GI ---
Consult Consult Specialty:: GI Referred by:: Dr Bryant Davila Reason for Consultation:: GI bleed - History of Present Illness History of Present Illness: Patient is a 74 y/o female with past medical history of HTN, HLD, Thyroid nodule. I was consulted to see patient for GI bleed. Patient states that yesterday she noted blood in her stool. After having a BM she states that she started bleeding bright red blood from her rectum which has been continuous. She had 2 syncopal episodes yesterday one at home and in the ER. Noted with drop in Hg from 10 to 6.9. Currently receiving her 2nd unit of PRBC for transfusion. Patient states her last EGD was 09/[address] Quinones and her last colonoscopy was [address] Simons. Denies chronic aspirin or NSAID use. She admits to alcohol use in the past. Denies abdominal pain, nausea, vomiting. On exam noted with bright red blood in diaper. - History Source History Provided By: Patient Limitations to Obtaining History: No Limitations - Past Medical History Cardio/Vascular: Yes: HTN, Hyperlipdemia - Past Surgical History Past Surgical History: Yes: Appendectomy, Bariatric Surgery, Hysterectomy - Alcohol/Substance Use Hx Alcohol Use: No History of Substance Use: reports: None - Smoking History Smoking history: Never smoked Have you smoked in the past 12 months: No Aproximately how many cigarettes per day: 0 If you are a former smoker, when did you quit?: 1986 - Social History ADL: Independent History of Recent Travel: No Home Medications - Allergies Allergies/Adverse Reactions: Allergies Allergy/AdvReac Type Severity Reaction Status Date / Time codeine [Codeine] Allergy Intermediate Verified 02/24/19 20:24 - Home Medications Home Medications: Ambulatory Orders Aspirin Coated [Ecotrin] 81 mg PO DAILY 05/05/12 Calcitonin-[place] 3.7 ml NS DAILY 05/05/12 Calcium/Magnesium/Vit D3 [Calcium 500 mg Tablet] 1,000 mg PO DAILY 05/05/12 Cholecalciferol (Vitamin D3) [Vitamin D] 1,000 unit PO DAILY 05/05/12 Multivitamin [Multivitamins] 1 each PO DAILY 05/05/12 Timolol 0.25% [Timoptic 0.25%] 1 drop OU DAILY 05/05/12 Atorvastatin Ca [Lipitor] 10 mg PO HS 02/24/19 Nebivolol HCl [Bystolic] 10 mg PO DAILY 02/24/19 Review of Systems - Review of Systems Constitutional: reports: Weakness Eyes: reports: No Symptoms HENT: reports: No Symptoms Neck: reports: No Symptoms Cardiovascular: reports: No Symptoms Respiratory: reports: No Symptoms Gastrointestinal: reports: Other (Rectal bleeding) Genitourinary: reports: No Symptoms Breasts: reports: No Symptoms Reported Musculoskeletal: reports: No Symptoms Integumentary: reports: No Symptoms Neurological: reports: No Symptoms Endocrine: reports: No Symptoms Hematology/Lymphatic: reports: No Symptoms Psychiatric: reports: No Symptoms Physical Exam-GI Vital Signs: Vital Signs Temperature 97.9 F 02/25/19 06:38 Pulse Rate 73 02/25/19 06:38 Respiratory Rate 20 02/25/19 06:38 Blood Pressure 74/35 L 02/25/19 06:38 O2 Sat by Pulse Oximetry (%) 100 02/25/19 06:38 Constitutional: Yes: Calm, Pallor Eyes: Yes: Conjunctiva Clear HENT: Yes: Atraumatic Cardiovascular: Yes: Regular Rate and Rhythm Respiratory: Yes: Regular, CTA Bilaterally Gastrointestinal Inspection: Yes: WNL. No: Ascites, Distention, Hernia, Scars, Other ...Auscultate: Yes: Normoactive Bowel Sounds. No: Hyperactive Bowel Sounds, Hypoactive Bowel Sounds, No Bowel Sounds, Other ...Palpate: Yes: Soft. No: Firm/Rigid, Guarding, Hepatomegaly, Mass, Pulsatile Mass, Splenomegaly, Tenderness, Tenderness, Epigastium, Tenderness, Rebound, Other ...Percussion: Yes: Tympanitic. No: Dullness, Fluid Wave, Other ...Rectal Exam: Yes: Other (rectal bleeding) Neurological: Yes: Alert Psychiatric: Yes: Alert Labs: CBC, BMP 02/25/19 06:10 02/25/19 06:10 INR, PTT INR 1.24 (0.83-1.09) H 02/24/19 20:58 Home Medication List Medication Instructions Recorded Confirmed Type Aspirin Coated [Ecotrin] 81 mg PO DAILY 05/05/12 02/24/19 History Calcitonin-[place] 3.7 ml NS DAILY 05/05/12 02/24/19 History Calcium/Magnesium/Vit D3 [Calcium 1,000 mg PO DAILY 05/05/12 02/24/19 History 500 mg Tablet] Cholecalciferol (Vitamin D3) 1,000 unit PO DAILY 05/05/12 02/24/19 History [Vitamin D] Multivitamin [Multivitamins] 1 each PO DAILY 05/05/12 02/24/19 History Timolol 0.25% [Timoptic 0.25%] 1 drop OU DAILY 05/05/12 02/24/19 History Atorvastatin Ca [Lipitor] 10 mg PO HS 02/24/19 02/24/19 History Nebivolol HCl [Bystolic] 10 mg PO DAILY 02/24/19 02/24/19 History Active Medications Generic Name Dose Route Start Last Admin Trade Name Meng PRN Reason Stop Dose Admin Chlorhexidine Gluconate 1 applic 02/25/19 22:00 Hibiclens For Decolonization - TP HS RASHI Sodium Chloride 1,000 mls @ 75 mls/hr 02/25/19 01:15 02/25/19 01:51 Normal Saline - IV 75 mls/hr ASDIR RASHI Administration Sodium Chloride 1,000 mls @ 1,000 mls/hr 02/25/19 07:35 02/25/19 07:35 Normal Saline - IV 02/25/19 08:34 1,000 mls/hr ASDIR STA Administration Vasopressin 50 units/ Sodium 100 mls @ 4 mls/hr 02/25/19 08:30 Chloride IVPB ASDIR RASHI Protocol 2 UNITS/HR Mupirocin 1 applic 02/25/19 10:00 Bactroban Ointment (For Decolonization) - NS 03/02/19 09:59 BID RASHI Problem List - Problems (1) Lower GI bleed Assessment/Plan: >Abdomen/Pelvic CTA STAT >s/p 2U PRBC transfusion >repeat CBC to monitor Hg >place NGT to LCS >pending CTA results will possibly need emergent Endoscopy Code(s): K92.2 - GASTROINTESTINAL HEMORRHAGE, UNSPECIFIED
[2019-02-25] MEDS ORDERED: CALCIUM GLUCONATE 10% - 1,000 MG/10 ML VIAL IVPUSH ONE (09:21)
[2019-02-25 09:47] VITALS: BMI 33.3
[2019-02-25] MEDS: MUPIROCIN 2% TOPICAL OINTMENT FOR DECOLONIZATION NS SCH ×2 (11:00→21:25)
--- NOTE | 2019-02-25 11:29 | PN ---
Teaching Attending Note Name of Resident: Neto Davila ATTENDING PHYSICIAN STATEMENT I saw and evaluated the patient. I reviewed the resident's note and discussed the case with the resident. I agree with the resident's findings and plan as documented. SUBJECTIVE: Pt seen and examined in the ICU. Still with dizziness/lightheadedness. No shortness of breath or chest pain. Received 3 units PRBC so far. OBJECTIVE: Vital Signs Period Temp Pulse Resp BP Sys/[place]over Pulse Ox Last 24 Hr 97.4 F-98.5 F 66-79 15-24 70-113/35-70 95-100 Intake & Output 02/22/19 02/23/19 02/24/19 02/25/19 23:59 23:59 23:59 23:59 Weight 88 kg Gen: NAD at rest Heart: RRR Lung: decreased breath sounds at the bases Abd: soft, nontender Ext: no edema CBC, BMP 02/25/19 06:10 02/25/19 06:10 Active Medications Chlorhexidine Gluconate (Hibiclens For Decolonization -) 1 applic TP HS RASHI Vasopressin 50 units/ Sodium (Chloride) 100 mls @ 4 mls/hr IVPB ASDIR RASHI; Protocol Sodium Chloride (Normal Saline -) 1,000 mls @ 75 mls/hr IV ASDIR RASHI Pantoprazole Sodium 80 mg/ (Sodium Chloride) 100 mls @ 10 mls/hr IVPB Q10H RASHI Mupirocin (Bactroban Ointment (For Decolonization) -) 1 applic NS BID RASHI Stop: 03/02/19 09:59 ASSESSMENT AND PLAN: GI Bleed Acute Blood Loss Anemia Hemorrhagic/Hypovolemic Shock h/o HTN Hyperlipidemia - transfuse PRBC - monitor CBC, coags - protonix - IVF - ensure large bore peripheral access - pressors if remains hypotensive - NPO - GI f/u - f/u CTA A/P - DVT prophylaxis - continue ICU monitoring critical care time spent in reviewing chart, evaluating patient and formulating plan 35 min
--- NOTE | 2019-02-25 13:49 | RAPID ---
Physical Examination Vital Signs: Vital Signs Temperature 97.9 F 02/25/19 06:38 Pulse Rate 73 02/25/19 08:45 Respiratory Rate 19 02/25/19 08:45 Blood Pressure 100/39 L 02/25/19 08:45 O2 Sat by Pulse Oximetry (%) 97 02/25/19 08:45 Constitutional: Yes: Well Nourished, Other Eyes: Yes: Other HENT: Yes: Other Neck: Yes: Other Cardiovascular: Yes: Other Respiratory: Yes: Other Gastrointestinal: Yes: Other ...Rectal Exam: Yes: Other Renal/: Yes: Other Breast(s): Yes: Other Musculoskeletal: Yes: Other Extremities: Yes: Other Integumentary: Yes: Other Wound/Incision: Yes: Other Neurological: Yes: Other Psychiatric: Yes: Other Labs: CBC, BMP 02/25/19 06:10 02/25/19 06:10 Rapid Response - Rapid Response Assessment: Code 99 called at 13:28 as pt was reported to have no pulse. Primary team arrived. Anesthesia team verbally requested to manage code. ACLS protocol was initiated. Please refer to code sheet for further details. ROSC achieved at 13:32 Primary team made aware. Rest as per ICU team.
--- NOTE | 2019-02-25 14:01 | EKG ---
Test Reason : Blood Pressure : / mmHG Vent. Rate : 068 BPM Atrial Rate : 068 BPM P-R Int : 128 ms QRS Dur : 082 ms QT Int : 402 ms P-R-T Axes : 016 076 047 degrees QTc Int : 427 ms NORMAL SINUS RHYTHM NONSPECIFIC ST ABNORMALITY WHEN COMPARED WITH ECG OF 23-SEP-2013 18:16, NONSPECIFIC T WAVE ABNORMALITY NOW EVIDENT IN ANTERIOR LEADS Confirmed by LETA BURTON MD ([id number]) on 02/25/2019 2:00:53 PM Referred By: Confirmed By:LETA BURTON MD
--- NOTE | 2019-02-25 14:15 | PN ---
Progress Note (short form) - Note Progress Note: During colonoscopy at around 1:28 pm, the patient became pulseless. Code was called. She was emergently intubated and chest compressions for about 2min. She also received ).4mg of Atropine and Epinephrine. She begam to breath on her own , blood pressure stabalized. She was receiving the third unit of blood. CTA result was discussed with Dr Crowley and nadine;ity of UGIB was noted. EGD-- noted to have a mucosal split with spontaneous oozing. This was clipped colonoscopy was resummed once stabalized. The right colon had clots of blood unable to visualize well. The left colon has scattered diverticula but not of them were bleeding. It is unclear were the bleeding site was. Problem List - Problems (1) Lower GI bleed Code(s): K92.2 - GASTROINTESTINAL HEMORRHAGE, UNSPECIFIED
--- NOTE | 2019-02-25 14:17 | PN ---
Progress Note (short form) - Note Progress Note: CT of abdomen-- noted to have a dilated CBD and pancreatic duct. Etiology unclear Problem List - Problems (1) Lower GI bleed Code(s): K92.2 - GASTROINTESTINAL HEMORRHAGE, UNSPECIFIED
--- NOTE | 2019-02-25 15:28 | PN ---
Progress Note (short form) - Note Progress Note: patient had rapid response during EGD bradycardic got atropine the lost pulse, code 99 chest compression got epi and then got back pulse divertuclar bleed now in icu surgery and cardiology consulted icu monitiring- geting PRBC now currently patient awake alert able to move all 4 extremities [id number] cta b/l soft nt nd no edema divertuclar bleed: icu monitirng surgical eval monitr cbc prbc NPO
[2019-02-25] MEDS ORDERED: EPINEPHrine 1:10,000 (P-F SYR) 1 MG/10 ML DISP.SYRIN ONE (16:21)
--- NOTE | 2019-02-25 17:14 | PN ---
Progress Note (short form) - Note Progress Note: Events noted and discussed with and son labs pending pt denies any chest pain at this time no further gross bleeding noted await labs d/w gi surgical consult Problem List - Problems (1) GI bleed Code(s): K92.2 - GASTROINTESTINAL HEMORRHAGE, UNSPECIFIED (2) Anemia Code(s): D64.9 - ANEMIA, UNSPECIFIED (3) Hypotension Code(s): I95.9 - HYPOTENSION, UNSPECIFIED (4) HLD (hyperlipidemia) Code(s): E78.5 - HYPERLIPIDEMIA, UNSPECIFIED (5) HTN (hypertension) Code(s): I10 - ESSENTIAL (PRIMARY) HYPERTENSION (6) Carotid stenosis Code(s): I65.29 - OCCLUSION AND STENOSIS OF UNSPECIFIED CAROTID ARTERY
[2019-02-25] MEDS ORDERED: PT OWN MED DRAWER 7, Y5N ONE (17:47)
[2019-02-25] MEDS: SODIUM CHLORIDE 1,000 ML IV SCH (18:30)
[2019-02-25] MEDS: PANTOPRAZOLE SODIUM 80 MG in SODIUM CHLORIDE 100 ML IVPB SCH ×2 (19:29→21:22)
[2019-02-25] MEDS: THIAMINE HCL 200 MG/2 ML VIAL IM SCH (19:29)
[2019-02-25 20:06] LABS: BASO % 0.9 % (0-2.0); EOS % 0.2 % (0-4.5); HEMOGLOBIN 9.7 GM/dL (10.7-15.3); LYMPH % 24.1 % (8-40); MCH 32.5 pg (25.7-33.7); MCHC 34.7 g/dl (32.0-36.0); MEAN CELL VOLUME 93.7 fl (80-96); MEAN PLT VOLUME 9.9 fl (7.5-11.1); NEUT % 64.8 % (42.8-82.8); PLATELET COUNT 82 K/MM3 (134-434); RBC 2.99 M/mm3 (3.60-5.2); RDW 15.9 % (11.6-15.6); WHITE BLOOD COUNT 10.2 K/mm3 (4.0-10.0)
--- NOTE | 2019-02-25 20:20 | CONSULT ---
Consult Consult Specialty:: Surgery Reason for Consultation:: LGIB - History of Present Illness Chief Complaint: RECTAL BLEEDING History of Present Illness: his is a 74 y/o woman with a PMHx of HTN, HLD, Thyroid Nodule. Who presents to the ED with BRBPR 3 episodes. LGIB was massive enough to result in acute anemia requiring transfusion of blood and blood products. CTA abdomen and pelvis was negative for active bleeding. CBD and pancreatic ductal dilatation noted. EGD showed mucosal split with oozing controlled by clipping. Colonoscopy showed blood clots in the right colon with no clear source of hemorrhage. Patient is currently stable without active rectal bleeding. - History Source History Provided By: Patient - Past Medical History Cardio/Vascular: Yes: HTN, Hyperlipdemia - Past Surgical History Past Surgical History: Yes: Appendectomy, Bariatric Surgery, Hysterectomy - Alcohol/Substance Use Hx Alcohol Use: No History of Substance Use: reports: None - Smoking History Smoking history: Never smoked Have you smoked in the past 12 months: No Aproximately how many cigarettes per day: 0 If you are a former smoker, when did you quit?: 1986 - Social History ADL: Independent History of Recent Travel: No Home Medications - Allergies Allergies/Adverse Reactions: Allergies Allergy/AdvReac Type Severity Reaction Status Date / Time codeine [Codeine] Allergy Intermediate Verified 02/24/19 20:24 - Home Medications Home Medications: Ambulatory Orders Aspirin Coated [Ecotrin] 81 mg PO DAILY 05/05/12 Calcitonin-[place] 3.7 ml NS DAILY 05/05/12 Calcium/Magnesium/Vit D3 [Calcium 500 mg Tablet] 1,000 mg PO DAILY 05/05/12 Cholecalciferol (Vitamin D3) [Vitamin D] 1,000 unit PO DAILY 05/05/12 Multivitamin [Multivitamins] 1 each PO DAILY 05/05/12 Timolol 0.25% [Timoptic 0.25%] 1 drop OU DAILY 05/05/12 Atorvastatin Ca [Lipitor] 10 mg PO HS 02/24/19 Nebivolol HCl [Bystolic] 10 mg PO DAILY 02/24/19 Review of Systems - Review of Systems Cardiovascular: reports: No Symptoms Respiratory: reports: No Symptoms Gastrointestinal: reports: Rectal Bleeding (not actively bleeding) Physical Exam Vital Signs: Vital Signs Temperature 97.4 F L 02/25/19 14:30 Pulse Rate 80 08/09/19 18:30 Respiratory Rate 21 H 02/25/19 19:48 Blood Pressure 131/65 02/25/19 18:30 O2 Sat by Pulse Oximetry (%) 97 02/25/19 19:48 Constitutional: Yes: Anxious HENT: Yes: Normocephalic Neck: Yes: Supple Respiratory: Yes: CTA Bilaterally Gastrointestinal: Yes: Soft, Tenderness (none) ...Rectal Exam: Yes: Deferred Labs: CBC, BMP 02/25/19 19:15 Imaging - Results Cat Scan: Report Reviewed, Image Reviewed Problem List - Problems (1) Lower GI bleed Assessment/Plan: possible diverticular bleeding Monitor Hgb/Hct IVF repeat CTA if massive LGIB recurs If positive, will require mesenteric angiogram for hemorrhage control by IR Surgical intervention if above fails further radiologic w/u for pancreatobiliary abnormality when stable Will follow. Code(s): K92.2 - GASTROINTESTINAL HEMORRHAGE, UNSPECIFIED
--- NOTE | 2019-02-25 20:37 | CONSULT ---
Consult - text type - Consultation Consultation Note: 74 y/o woman with a PMHx of HTN, HLD, Thyroid Nodule who presents to the ED with BRBPR 3 episodes. LGIB was massive enough to result in acute anemia requiring transfusion of blood and blood products. CTA abdomen and pelvis was negative for active bleeding. CBD and pancreatic ductal dilatation noted. EGD showed mucosal split with oozing controlled by clipping. Colonoscopy showed blood clots in the right colon with no clear source of hemorrhage. Patient is currently stable without active rectal bleeding. - History Source History Provided By: Patient - Past Medical History Cardio/Vascular: Yes: HTN, Hyperlipdemia - Past Surgical History Past Surgical History: Yes: Appendectomy, Bariatric Surgery, Hysterectomy - Alcohol/Substance Use Hx Alcohol Use: No History of Substance Use: reports: None - Smoking History Smoking history: Never smoked - Social History ADL: Independent - Allergies Allergies/Adverse Reactions: Allergies Allergy/AdvReac Type Severity Reaction Status Date / Time codeine [Codeine] Allergy Intermediate Verified 02/24/19 20:24 - Home Medications Home Medications: Ambulatory Orders Aspirin Coated [Ecotrin] 81 mg PO DAILY 05/05/12 Calcitonin-Hope 3.7 ml NS DAILY 05/05/12 Calcium/Magnesium/Vit D3 [Calcium 500 mg Tablet] 1,000 mg PO DAILY 05/05/12 Cholecalciferol (Vitamin D3) [Vitamin D] 1,000 unit PO DAILY 05/05/12 Multivitamin [Multivitamins] 1 each PO DAILY 05/05/12 Timolol 0.25% [Timoptic 0.25%] 1 drop OU DAILY 05/05/12 Atorvastatin Ca [Lipitor] 10 mg PO HS 02/24/19 Nebivolol HCl [Bystolic] 10 mg PO DAILY 02/24/19 Physical Exam Vital Signs: AFVSS Constitutional: Yes: Anxious HENT: Yes: Normocephalic Neck: Yes: Supple Respiratory: Yes: CTA Bilaterally Gastrointestinal: Yes: Soft, Tenderness (none) Labs/MEds reviewed A/P 74 y/o woman with a PMHx of HTN, HLD, Thyroid Nodule who presents to the ED with BRBPR 3 episodes. LGIB was massive enough to result in acute anemia requiring transfusion of blood and blood products. CTA abdomen and pelvis was negative for active bleeding. CBD and pancreatic ductal dilatation noted. EGD showed mucosal split with oozing controlled by clipping. Colonoscopy showed blood clots in the right colon with no clear source of hemorrhage. Patient is currently stable without active rectal bleeding. CTA-- Intact gastric bypass anastomotic site. Dilated CBD/ pancreatic duct. Pancreatic duct is unchanged since 2014. CBD is more prominent--needs f/u imaging R. renal cyst--needs f/u imaging Thrombocytopenia--mild will check B12/folate/LDH/flow ? ITP Transfuse platelets tokeep platelets > 80-100,000 Last dose of aspirin 2 weeks ago. no h/o NSAIDS will follow
[2019-02-25 20:40] LABS: ALBUMIN 2.4 g/dl (3.4-5.0); BILIRUBIN,TOTAL 0.9 mg/dL (0.2-1); BLOOD UREA NITROGEN 23.8 mg/dL (7-18); CALCIUM 7.5 mg/dL (8.5-10.1); CREATININE 0.6 mg/dL (0.55-1.3); MAGNESIUM 1.6 mg/dL (1.8-2.4); POTASSIUM 4.1 mmol/L (3.5-5.1); TOT PROT 4.4 g/dl (6.4-8.2)
[2019-02-25] MEDS ORDERED: CALCIUM GLUCONATE 10% - 1,000 MG/10 ML VIAL ONE (20:55)
[2019-02-25] MEDS: CHLORHEXIDINE GLUCONATE 4% CLEANSER FOR DECOLONIZATION TP SCH (21:25)
[2019-02-25] MEDS: ACETAMINOPHEN 1000 MG/100 ML VIAL (NON FORMULARY) IVPB PRN (21:45)
[2019-02-25 23:49] LABS: PLATELET ESTIMATE DECREASED
[2019-02-26 06:37] LABS: ALBUMIN 2.1 g/dl (3.4-5.0); BILIRUBIN,TOTAL 0.8 mg/dL (0.2-1); BLOOD UREA NITROGEN 19.7 mg/dL (7-18); CALCIUM 7.5 mg/dL (8.5-10.1); CREATININE 0.6 mg/dL (0.55-1.3); POTASSIUM 3.9 mmol/L (3.5-5.1)
[2019-02-26] MEDS: PANTOPRAZOLE SODIUM 80 MG in SODIUM CHLORIDE 100 ML IVPB SCH ×2 (06:37→17:25)
--- NOTE | 2019-02-26 08:41 | PN ---
Progress Note (short form) - Note Progress Note: Anesthesia /Pain Pt seen and examined S:Alert and awake comfortable O: Vital Signs Temperature 98 F 02/26/19 04:00 Pulse Rate 68 02/26/19 06:00 Respiratory Rate 21 H 02/26/19 06:00 Blood Pressure 106/43 L 02/26/19 06:00 O2 Sat by Pulse Oximetry (%) 97 02/25/19 19:48 CBC, BMP 02/26/19 05:25 A/P: Current Active Problems Anemia (Acute) Carotid stenosis (Acute) GI bleed (Acute) HLD (hyperlipidemia) (Acute) HTN (hypertension) (Acute) Hypotension (Acute) Lower GI bleed (Acute) s/p code in the endo extubated Doing well post op Continue current care Neto Etienne MD
[2019-02-26 08:50] LABS: BASO % 1.7 % (0-2.0); EOS % 1.8 % (0-4.5); HEMATOCRIT 24.3 % (32.4-45.2); HEMOGLOBIN 8.7 GM/dL (10.7-15.3); LYMPH % 27.5 % (8-40); MCH 32.6 pg (25.7-33.7); MCHC 35.7 g/dl (32.0-36.0); MEAN CELL VOLUME 91.2 fl (80-96); MEAN PLT VOLUME 9.8 fl (7.5-11.1); MONO % 10.4 % (3.8-10.2); NEUT % 58.6 % (42.8-82.8); PLATELET COUNT 86 K/MM3 (134-434); RBC 2.66 M/mm3 (3.60-5.2); RDW 16.9 % (11.6-15.6); WHITE BLOOD COUNT 5.5 K/mm3 (4.0-10.0)
--- NOTE | 2019-02-26 08:56 | PN ---
Progress Note (short form) - Note Progress Note: Pulm/CCM SUBJECTIVE: Pt seen and examined in the ICU. \ -now further bleeding -stable hemodynamics -am cbc pending OBJECTIVE: Vital Signs Temp 98 F 02/26/19 04:00 Pulse 68 02/26/19 06:00 Resp 21 H 02/26/19 06:00 BP 106/43 L 02/26/19 06:00 Pulse Ox 97 02/25/19 19:48 Intake & Output 02/25/19 02/25/19 02/26/19 11:59 23:59 11:59 Intake Total 2551 525 Balance 2551 525 Intake: IV 1100 525 Normal Saline - 1,000 ml 300 525 @ 75 mls/hr IV ASDIR RASHI Rx#:[id number] IVPB 100 Packed Cells 1050 Fresh Frozen Plasma 301 Other: Voiding Method Toilet Bedpan # Unmeasured Voids Void 1 1 Bowel Movement No Gen: NAD at rest Heart: RRR Lung: clear anterior Abd: soft, nontender Ext: no edema Neuro: awake non-focal CBC, BMP 02/26/19 05:25 Active Medications Acetaminophen (Ofirmev Injection -) 1,000 mg IVPB Q6H PRN PRN Reason: PAIN LEVEL 6-10 Last Admin: 02/25/19 21:45 Dose: 1,000 mg Albuterol/Ipratropium (Duoneb -) 1 amp NEB RQID RASHI Chlorhexidine Gluconate (Hibiclens For Decolonization -) 1 applic TP HS [facility] OF [facility] Last Admin: 02/25/19 21:25 Dose: 1 applic Vasopressin 50 units/ Sodium (Chloride) 100 mls @ 4 mls/hr IVPB ASDIR ON LICENSE OF [facility]; Protocol Sodium Chloride (Normal Saline -) 1,000 mls @ 75 mls/hr IV ASDIR RASHI Last Admin: 02/25/19 18:30 Dose: Not Given Pantoprazole Sodium 80 mg/ (Sodium Chloride) 100 mls @ 10 mls/hr IVPB Q10H ON LICENSE OF [facility] Last Admin: 02/26/19 06:37 Dose: 10 mls/hr Multivitamins/Minerals (Infuvite Adult -) 10 ml IV DAILY ON LICENSE OF [facility] Mupirocin (Bactroban Ointment (For Decolonization) -) 1 applic NS BID [facility] OF [facility] Stop: 03/02/19 09:59 Last Admin: 02/25/19 21:25 Dose: 1 applic Thiamine HCl (Vitamin B1 Injection -) 200 mg IM DAILY RASHI Last Admin: 02/25/19 19:29 Dose: 200 mg ASSESSMENT AND PLAN: GI Bleed Acute Blood Loss Anemia Hemorrhagic/Hypovolemic Shock h/o HTN Hyperlipidemia - transfuse PRBC - monitor CBC, coags - protonix - IVF - ensure large bore peripheral access - clears today - GI f/u - DVT prophylaxis - floor if repeat H/H stable critical care time spent in reviewing chart, evaluating patient and formulating plan 35 min Trisha ACNP 44
--- NOTE | 2019-02-26 09:04 | PN ---
Progress Note, Physician History of Present Illness: 74 y/o woman with a PMHx of HTN, HLD, Thyroid Nodule. Who presents to the ED with BRBPR 3 episodes. She felt fatigued and dizzzy last night and came to er pt noted with new onset thrombocytopenia and was sent to pricer Patient also states that she finished a 7 day course of Ciprofloxacin last week for UTI. Today c/o chest pain on movement c/o upper right sided back pain - Current Medication List Current Medications: Active Medications Acetaminophen (Ofirmev Injection -) 1,000 mg IVPB Q6H PRN PRN Reason: PAIN LEVEL 6-10 Last Admin: 02/25/19 21:45 Dose: 1,000 mg Albuterol/Ipratropium (Duoneb -) 1 amp NEB RQID [facility] Chlorhexidine Gluconate (Hibiclens For Decolonization -) 1 applic TP HS [facility] Last Admin: 02/25/19 21:25 Dose: 1 applic Vasopressin 50 units/ Sodium (Chloride) 100 mls @ 4 mls/hr IVPB ASDIR [facility]; Protocol Sodium Chloride (Normal Saline -) 1,000 mls @ 75 mls/hr IV ASDIR RASHI Last Admin: 02/25/19 18:30 Dose: Not Given Pantoprazole Sodium 80 mg/ (Sodium Chloride) 100 mls @ 10 mls/hr IVPB Q10H [facility] Last Admin: 02/26/19 06:37 Dose: 10 mls/hr Multivitamins/Minerals (Infuvite Adult -) 10 ml IV DAILY [facility] Mupirocin (Bactroban Ointment (For Decolonization) -) 1 applic NS BID [facility] Stop: 03/02/19 09:59 Last Admin: 02/25/19 21:25 Dose: 1 applic Thiamine HCl (Vitamin B1 Injection -) 200 mg IM DAILY [facility] Last Admin: 02/25/19 19:29 Dose: 200 mg - Objective Vital Signs: Vital Signs Temperature 98 F 02/26/19 04:00 Pulse Rate 72 02/26/19 08:00 Respiratory Rate 18 02/26/19 08:00 Blood Pressure 121/55 L 02/26/19 08:00 O2 Sat by Pulse Oximetry (%) 97 02/25/19 19:48 Cardiovascular: Yes: Regular Rate and Rhythm Respiratory: Yes: Rales (at the bases) Gastrointestinal: Yes: Normal Bowel Sounds, Soft. No: Tenderness Edema: No Neurological: Yes: Alert, Oriented. No: Pre-Existing Deficit Labs: CBC, BMP 02/26/19 05:30 02/26/19 05:25 INR, PTT INR 1.24 (0.83-1.09) H 02/24/19 20:58 Problem List - Problems (1) GI bleed Assessment/Plan: -Transfused prbc and ffp -icu care -h/o etoh abuse--no ulcer -EGD oozing --clip placed -Colon-Diverticulosis--no active bleeding -ivf -ppi drip -gi consult--d/w dr lopez Code(s): K92.2 - GASTROINTESTINAL HEMORRHAGE, UNSPECIFIED (2) Anemia Assessment/Plan: transfuse -as above Code(s): D64.9 - ANEMIA, UNSPECIFIED (3) Hypotension Assessment/Plan: due to gi bleed transfused stble bp now Code(s): I95.9 - HYPOTENSION, UNSPECIFIED (4) HLD (hyperlipidemia) Code(s): E78.5 - HYPERLIPIDEMIA, UNSPECIFIED (5) HTN (hypertension) Assessment/Plan: hold meds due to above Code(s): I10 - ESSENTIAL (PRIMARY) HYPERTENSION (6) Carotid stenosis Assessment/Plan: asymptomatic Code(s): I65.29 - OCCLUSION AND STENOSIS OF UNSPECIFIED CAROTID ARTERY (7) Chest pain Assessment/Plan: maybe due to compresion troponin mild elevated--maybe due to demand ischemia vs compressions cardio Code(s): R07.9 - CHEST PAIN, UNSPECIFIED (8) Troponin level elevated Assessment/Plan: as above Code(s): R74.8 - ABNORMAL LEVELS OF OTHER SERUM ENZYMES (9) Back pain Assessment/Plan: maybe muscular vs atelectasis nebs r/o pe--pna--CTA Code(s): M54.9 - DORSALGIA, UNSPECIFIED
[2019-02-26] MEDS ORDERED: PT OWN MED DRAWER 7, Y5N ONE ×3 (09:09→17:19)
[2019-02-26] MEDS: MULTIVIT INJ. ADULT COMBO WITH VIT K 1 COMBO 10 ML VIAL IV SCH ×2 (09:29→13:29)
[2019-02-26] MEDS: THIAMINE HCL 200 MG/2 ML VIAL IM SCH (09:30)
[2019-02-26] MEDS: MUPIROCIN 2% TOPICAL OINTMENT FOR DECOLONIZATION NS SCH ×2 (09:31→21:38)
[2019-02-26] MEDS: ALBUTEROL SO4 2.5/IPRATROPIUM 0.5 INH SOL 3 ML VIAL.NEB. NEB SCH ×3 (11:00→20:22)
[2019-02-26 11:41] LABS: ANISOCYTOSIS 0; MACROCYTOSIS 0; OVALOCYTE 1+; PLATELET ESTIMATE DECREASED
[2019-02-26] MEDS: SODIUM CHLORIDE 1,000 ML IV SCH ×2 (13:29→21:38)
--- NOTE | 2019-02-26 13:41 | PN ---
Progress Note, Physician History of Present Illness: Denies recurrence of LGIB Tolerating clear liquid diet - Current Medication List Current Medications: Active Medications Acetaminophen (Ofirmev Injection -) 1,000 mg IVPB Q6H PRN PRN Reason: PAIN LEVEL 6-10 Last Admin: 02/25/19 21:45 Dose: 1,000 mg Albuterol/Ipratropium (Duoneb -) 1 amp NEB RQID [facility] Last Admin: 02/26/19 11:00 Dose: 1 amp Chlorhexidine Gluconate (Hibiclens For Decolonization -) 1 applic TP HS [facility] Last Admin: 02/25/19 21:25 Dose: 1 applic Sodium Chloride (Normal Saline -) 1,000 mls @ 75 mls/hr IV ASDIR [facility] Last Admin: 02/26/19 13:29 Dose: 75 mls/hr Pantoprazole Sodium 80 mg/ (Sodium Chloride) 100 mls @ 10 mls/hr IVPB Q10H [facility] Last Admin: 02/26/19 06:37 Dose: 10 mls/hr Multivitamins/Minerals (Infuvite Adult -) 10 ml IV DAILY [facility] Last Admin: 02/26/19 13:29 Dose: Not Given Mupirocin (Bactroban Ointment (For Decolonization) -) 1 applic NS BID [facility] Stop: 03/02/19 09:59 Last Admin: 02/26/19 09:31 Dose: 1 applic Thiamine HCl (Vitamin B1 Injection -) 200 mg IM DAILY [facility] Last Admin: 02/26/19 09:30 Dose: 200 mg - Objective Vital Signs: Vital Signs Temperature 97.7 F 02/26/19 12:00 Pulse Rate 72 02/26/19 12:00 Respiratory Rate 18 02/26/19 12:00 Blood Pressure 107/56 L 02/26/19 12:00 O2 Sat by Pulse Oximetry (%) 97 02/26/19 09:00 Gastrointestinal: Yes: Soft, Tenderness (none) Labs: CBC, BMP 02/26/19 05:30 02/26/19 05:25 INR, PTT INR 1.24 (0.83-1.09) H 02/24/19 20:58 Problem List - Problems (1) Lower GI bleed Assessment/Plan: LGIB seems to have resolved Drop in Hgb/Hct may be dilutional/HGB drift Plan of mgt as previously recommended Code(s): K92.2 - GASTROINTESTINAL HEMORRHAGE, UNSPECIFIED
[2019-02-26 14:43] LABS: HEMATOCRIT 25.7 % (32.4-45.2); HEMOGLOBIN 8.9 GM/dL (10.7-15.3); MCH 31.9 pg (25.7-33.7); MCHC 34.5 g/dl (32.0-36.0); MEAN CELL VOLUME 92.5 fl (80-96); MEAN PLT VOLUME 9.2 fl (7.5-11.1); PLATELET COUNT 93 K/MM3 (134-434); RBC 2.78 M/mm3 (3.60-5.2); RDW 16.7 % (11.6-15.6); WHITE BLOOD COUNT 5.4 K/mm3 (4.0-10.0)
[2019-02-26] MEDS: ACETAMINOPHEN 1000 MG/100 ML VIAL (NON FORMULARY) IVPB PRN (15:17)
--- NOTE | 2019-02-26 15:17 | EKG ---
Test Reason : Blood Pressure : / mmHG Vent. Rate : 063 BPM Atrial Rate : 063 BPM P-R Int : 152 ms QRS Dur : 088 ms QT Int : 456 ms P-R-T Axes : 067 086 065 degrees QTc Int : 466 ms SINUS RHYTHM WITH PREMATURE SUPRAVENTRICULAR COMPLEXES LOW VOLTAGE QRS BORDERLINE ECG WHEN COMPARED WITH ECG OF 25-FEB-2019 14:59, PREMATURE SUPRAVENTRICULAR COMPLEXES ARE NOW PRESENT VENT. RATE HAS DECREASED BY 31 BPM NONSPECIFIC T WAVE ABNORMALITY NO LONGER EVIDENT IN INFERIOR LEADS Confirmed by MD Ronn, David ([id number]) on 02/26/2019 3:17:05 PM Referred By: Maru QUIGLEY Confirmed By:David Brody MD
--- NOTE | 2019-02-26 15:20 | EKG ---
Test Reason : Blood Pressure : / mmHG Vent. Rate : 094 BPM Atrial Rate : 094 BPM P-R Int : 138 ms QRS Dur : 084 ms QT Int : 376 ms P-R-T Axes : 076 107 034 degrees QTc Int : 470 ms NORMAL SINUS RHYTHM RIGHTWARD AXIS NONSPECIFIC T WAVE ABNORMALITY ABNORMAL ECG WHEN COMPARED WITH ECG OF 24-FEB-2019 21:15, QRS AXIS SHIFTED RIGHT NONSPECIFIC T WAVE ABNORMALITY, WORSE IN INFERIOR LEADS Confirmed by MD Ronn, David ([id number]) on 02/26/2019 3:19:50 PM Referred By: ELIAN SANTIZO Confirmed By:David Brody MD
--- NOTE | 2019-02-26 17:00 | PN ---
Progress Note, Physician - Current Medication List Current Medications: Active Medications Acetaminophen (Ofirmev Injection -) 1,000 mg IVPB Q6H PRN PRN Reason: PAIN LEVEL 6-10 Last Admin: 02/26/19 15:17 Dose: 1,000 mg Albuterol/Ipratropium (Duoneb -) 1 amp NEB RQID [facility] Last Admin: 02/26/19 16:06 Dose: 1 amp Chlorhexidine Gluconate (Hibiclens For Decolonization -) 1 applic TP HS [facility] Last Admin: 02/25/19 21:25 Dose: 1 applic Sodium Chloride (Normal Saline -) 1,000 mls @ 75 mls/hr IV ASDIR [facility]ASH[facility] Last Admin: 02/26/19 13:29 Dose: 75 mls/hr Pantoprazole Sodium 80 mg/ (Sodium Chloride) 100 mls @ 10 mls/hr IVPB Q10H [facility] Last Admin: 02/26/19 06:37 Dose: 10 mls/hr Multivitamins/Minerals (Infuvite Adult -) 10 ml IV DAILY [facility] Last Admin: 02/26/19 13:29 Dose: Not Given Mupirocin (Bactroban Ointment (For Decolonization) -) 1 applic NS BID [facility] Stop: 03/02/19 09:59 Last Admin: 02/26/19 09:31 Dose: 1 applic Thiamine HCl (Vitamin B1 Injection -) 200 mg IM DAILY [facility] Last Admin: 02/26/19 09:30 Dose: 200 mg - Objective Vital Signs: Vital Signs Temperature 97.7 F 02/26/19 12:00 Pulse Rate 79 02/26/19 16:00 Respiratory Rate 18 02/26/19 16:00 Blood Pressure 114/52 L 02/26/19 16:00 O2 Sat by Pulse Oximetry (%) 97 02/26/19 09:00 Constitutional: Yes: No Distress Eyes: Yes: Conjunctiva Clear Cardiovascular: Yes: Regular Rate and Rhythm Respiratory: Yes: CTA Bilaterally Gastrointestinal: Yes: Soft. No: Distention, Tenderness, Epigastrium Edema: No Labs: CBC, BMP 02/26/19 14:33 02/26/19 05:25 INR, PTT INR 1.24 (0.83-1.09) H 02/24/19 20:58 Assessment/Plan 74F with HTN, HLD, Thyroid Nodule, hx gastric bypass admitted with LGIB, requiring transfusions. CTA abdomen and pelvis was negative for active bleeding. CBD and pancreatic ductal dilatation noted. EGD showed mucosal split with oozing controlled by clipping. Colonoscopy showed blood clots in the right colon with no clear source of hemorrhage. Imaging for more prominent CBC. Plts 80s, stable. Coags normal. No bleeding. Awaiting b12, folate, iron studies, peripheral flow, LDH
--- NOTE | 2019-02-26 17:24 | PN.GI ---
GI Progress Note Subjective: GI NOte ( covering Dr Khan); Fortunately no bleeding today. Has anticipated chest soreness from yesterday's events but no abdominal pain. Tolerating clear liquids - Objective Vital Signs: Vital Signs Temperature 97.7 F 02/26/19 12:00 Pulse Rate 79 02/26/19 16:00 Respiratory Rate 18 02/26/19 16:00 Blood Pressure 114/52 L 02/26/19 16:00 O2 Sat by Pulse Oximetry (%) 97 02/26/19 09:00 Laboratory Tests 02/25/19 02/25/19 02/26/19 06:10 19:15 05:30 Hgb 6.9 L* 9.7 L 8.7 L 02/26/19 14:33 Hgb 8.9 L Constitutional: No Distress ...Auscultate: Yes: Normoactive Bowel Sounds ...Palpate: Yes: Soft, Other (nontender) Labs: CBC, BMP 02/26/19 14:33 02/26/19 05:25 INR, PTT INR 1.24 (0.83-1.09) H 02/24/19 20:58 Assessment/Plan Assessment : - Fortunately the bleeding appears to have stopped. A right colon diverticular bleed is statistically the most likely etiology as no definitive UGI source was found. She could alternatively have bleeding from smal bawel vascular ectasias and should ideally have capsule endoscopy after discharge Plan: -- Advance to full liquids -- Serial CBCs The situation was discussed with the patient, her and son Problem List - Problems (1) Diverticular hemorrhage Code(s): K57.31 - DVRTCLOS OF LG INT W/O PERFORATION OR ABSCESS W BLEEDING (2) Anemia Code(s): D64.9 - ANEMIA, UNSPECIFIED (3) GI bleed Code(s): K92.2 - GASTROINTESTINAL HEMORRHAGE, UNSPECIFIED (4) HLD (hyperlipidemia) Code(s): E78.5 - HYPERLIPIDEMIA, UNSPECIFIED (5) HTN (hypertension) Code(s): I10 - ESSENTIAL (PRIMARY) HYPERTENSION
--- NOTE | 2019-02-26 17:49 | CON.CARD ---
Consult Consult Specialty:: Cardiology Reason for Consultation:: Hypotension - History of Present Illness Chief Complaint: Presently comfortable History of Present Illness: This is a 74 y/o woman with a PMHx of HTN, HLD, Thyroid Nodule. Who presents to the ED with BRBPR 3 episodes. She felt fatigued and dizzzy last night, went to get cleared for thyroid surgery the next day and was found to be hypotensive in the 80's, after which she noticed the blood in her stool and was sent to clinical quality analyst who saw that her platelet level was low. (doesn't remember how low ) Patient also states that she finished a 7 day course of Ciprofloxacin last week for UTI. - Past Medical History Cardio/Vascular: Yes: HTN, Hyperlipdemia - Past Surgical History Past Surgical History: Yes: Appendectomy, Bariatric Surgery, Hysterectomy - Alcohol/Substance Use Hx Alcohol Use: No History of Substance Use: reports: None - Smoking History Smoking history: Never smoked Have you smoked in the past 12 months: No Aproximately how many cigarettes per day: 0 If you are a former smoker, when did you quit?: 1986 - Social History ADL: Independent History of Recent Travel: No Home Medications - Allergies Allergies/Adverse Reactions: Allergies Allergy/AdvReac Type Severity Reaction Status Date / Time codeine [Codeine] Allergy Intermediate Verified 02/24/19 20:24 - Home Medications Home Medications: Ambulatory Orders Aspirin Coated [Ecotrin] 81 mg PO DAILY 05/05/12 Calcitonin-[place] 3.7 ml NS DAILY 05/05/12 Calcium/Magnesium/Vit D3 [Calcium 500 mg Tablet] 1,000 mg PO DAILY 05/05/12 Cholecalciferol (Vitamin D3) [Vitamin D] 1,000 unit PO DAILY 05/05/12 Multivitamin [Multivitamins] 1 each PO DAILY 05/05/12 Timolol 0.25% [Timoptic 0.25%] 1 drop OU DAILY 05/05/12 Atorvastatin Ca [Lipitor] 10 mg PO HS 02/24/19 Nebivolol HCl [Bystolic] 10 mg PO DAILY 02/24/19 Vital Signs: Vital Signs Temperature 97.7 F 02/26/19 12:00 Pulse Rate 79 02/26/19 16:00 Respiratory Rate 18 02/26/19 16:00 Blood Pressure 114/52 L 02/26/19 16:00 O2 Sat by Pulse Oximetry (%) 97 02/26/19 09:00 Constitutional: Yes: No Distress Eyes: Yes: WNL HENT: Yes: WNL Neck: Yes: WNL Respiratory: Yes: WNL, CTA Bilaterally Gastrointestinal: Yes: Normal Bowel Sounds, Soft Cardiovascular: Yes: Regular Rate and Rhythm Heart Sounds: Yes: S1, S2 Extremities: Yes: WNL Edema: No Neurological: Yes: Alert, Oriented - Other Data Labs, Other Data: CBC, BMP 02/26/19 14:33 02/26/19 05:25 INR, PTT INR 1.24 (0.83-1.09) H 02/24/19 20:58 Troponin, BNP 02/25/19 02/26/19 19:15 05:25 Troponin I 0.10 H 0.06 H Troponin, BNP 02/25/19 02/26/19 19:15 05:25 Troponin I 0.10 H 0.06 H Assessment/Plan 74 y/o woman with a PMHx of HTN, HLD, Thyroid Nodule. Who presents to the ED with BRBPR 3 episodes. She felt fatigued and dizzzy last night, went to get cleared for thyroid surgery the next day and was found to be hypotensive in the 80's, after which she noticed the blood in her stool and was sent to clinical quality analyst who saw that her platelet level was low. (doesn't remember how low ) Patient also states that she finished a 7 day course of Ciprofloxacin last week for UTI. Hypotension secondary to GI bleeding BP now 144/52 mmHg Continue to hold all antihypertensive medications Trops noted 0.10 and 0.06 EKG NSR at 63 BPM with no acute changes The troponin leak is likely secondary to demand ischemia secondary to severe anemia. When stable as an outpatient, she should have a stress test.
[2019-02-26] MEDS: CHLORHEXIDINE GLUCONATE 4% CLEANSER FOR DECOLONIZATION TP SCH (21:37)
[2019-02-27] MEDS: PANTOPRAZOLE SODIUM 80 MG in SODIUM CHLORIDE 100 ML IVPB SCH (03:30)
[2019-02-27 06:36] LABS: BASO % 2.4 % (0-2.0); HEMATOCRIT 23.2 % (32.4-45.2); HEMOGLOBIN 8.4 GM/dL (10.7-15.3); LYMPH % 30.9 % (8-40); MCH 32.6 pg (25.7-33.7); MEAN CELL VOLUME 90.6 fl (80-96); MEAN PLT VOLUME 9.3 fl (7.5-11.1); MONO % 9.2 % (3.8-10.2); NEUT % 54.5 % (42.8-82.8); PLATELET COUNT 92 K/MM3 (134-434); RBC 2.57 M/mm3 (3.60-5.2); WHITE BLOOD COUNT 4.8 K/mm3 (4.0-10.0)
[2019-02-27] MEDS: ALBUTEROL SO4 2.5/IPRATROPIUM 0.5 INH SOL 3 ML VIAL.NEB. NEB SCH ×4 (07:30→21:15)
--- NOTE | 2019-02-27 07:49 | PN ---
Progress Note (short form) - Note Progress Note: Pulm/CCM SUBJECTIVE: Pt seen and examined in the ICU. -no further bleeding - advancing diet, in for bed on floor. OBJECTIVE: Vital Signs Temp 98 F 02/27/19 06:00 Pulse 83 02/27/19 06:00 Resp 24 H 02/27/19 06:00 BP 124/60 02/27/19 06:00 Pulse Ox 97 02/26/19 19:57 Intake & Output 02/26/19 02/26/19 02/27/19 11:59 23:59 11:59 Intake Total 525 2921 220 Balance 525 2921 220 Intake: IV 525 750 100 Normal Saline - 1,000 ml 525 750 100 @ 75 mls/hr IV ASDIR RASHI Rx#:[id number] IVPB 220 120 Oral 600 Packed Cells 1050 Fresh Frozen Plasma 301 Other: Voiding Method Toilet Toilet # Unmeasured Voids Void 1 1 2 Bowel Movement No No Gen: NAD at rest Heart: RRR Lung: clear bilaterally, tender to palpation across chest 2/2 compressions Abd: soft, nontender, + BS Ext: no edema Neuro: awake non-focal, no distress CBC, BMP 02/27/19 05:40 02/26/19 05:25 Current Medications Acetaminophen (Ofirmev Injection -) 1,000 mg IVPB Q6H PRN PRN Reason: PAIN LEVEL 6-10 Last Admin: 02/26/19 15:17 Dose: 1,000 mg Albuterol/Ipratropium (Duoneb -) 1 amp NEB RQID [facility] Last Admin: 02/26/19 20:22 Dose: 1 amp Chlorhexidine Gluconate (Hibiclens For Decolonization -) 1 applic TP HS [facility] Last Admin: 02/26/19 21:37 Dose: 1 applic Sodium Chloride (Normal Saline -) 1,000 mls @ 75 mls/hr IV ASDIR RASHI Last Admin: 02/26/19 21:38 Dose: 75 mls/hr Pantoprazole Sodium 80 mg/ (Sodium Chloride) 100 mls @ 10 mls/hr IVPB Q10H [facility] Last Admin: 02/27/19 03:30 Dose: 10 mls/hr Multivitamins/Minerals (Infuvite Adult -) 10 ml IV DAILY [facility] Last Admin: 02/26/19 13:29 Dose: Not Given Mupirocin (Bactroban Ointment (For Decolonization) -) 1 applic NS BID [facility] Stop: 03/02/19 09:59 Last Admin: 02/26/19 21:38 Dose: 1 applic Thiamine HCl (Vitamin B1 Injection -) 200 mg IM DAILY [facility] Last Admin: 02/26/19 09:30 Dose: 200 mg ASSESSMENT AND PLAN: GI Bleed Acute Blood Loss Anemia Hemorrhagic/Hypovolemic Shock h/o HTN Hyperlipidemia - monitor CBC, coags - protonix as per GI - ensure large bore peripheral access - cont to advance diet - GI f/u, out pt capsule study - DVT prophylaxis - ok for floor critical care time spent in reviewing chart, evaluating patient and formulating plan 35 min Trisha ACNP 44
[2019-02-27] MEDS ORDERED: ACETAMINOPHEN 325 MG TABLET (FP) PO PRN (07:55)
--- NOTE | 2019-02-27 09:52 | PN ---
Progress Note, Physician History of Present Illness: 74 y/o woman with a PMHx of HTN, HLD, Thyroid Nodule. Who presents to the ED with BRBPR 3 episodes. She felt fatigued and dizzzy last night and came to er pt noted with new onset thrombocytopenia and was sent to dental technology advisor Patient also states that she finished a 7 day course of Ciprofloxacin last week for UTI. Today c/o chest pain on movement c/o upper right sided back pain - Current Medication List Current Medications: Active Medications Acetaminophen (Tylenol -) 650 mg PO Q4H PRN PRN Reason: MODERATE PAIN Albuterol/Ipratropium (Duoneb -) 1 amp NEB RQID [facility] Last Admin: 02/27/19 07:30 Dose: 1 amp Chlorhexidine Gluconate (Hibiclens For Decolonization -) 1 applic TP HS [facility] Last Admin: 02/26/19 21:37 Dose: 1 applic Sodium Chloride (Normal Saline -) 1,000 mls @ 75 mls/hr IV ASDIR [facility] Last Admin: 02/26/19 21:38 Dose: 75 mls/hr Pantoprazole Sodium 80 mg/ (Sodium Chloride) 100 mls @ 10 mls/hr IVPB Q10H [facility] Last Admin: 02/27/19 03:30 Dose: 10 mls/hr Multivitamins/Minerals (Infuvite Adult -) 10 ml IV DAILY [facility] Last Admin: 02/26/19 13:29 Dose: Not Given Mupirocin (Bactroban Ointment (For Decolonization) -) 1 applic NS BID [facility] Stop: 03/02/19 09:59 Last Admin: 02/26/19 21:38 Dose: 1 applic Thiamine HCl (Vitamin B1 Injection -) 200 mg IM DAILY [facility] Last Admin: 02/26/19 09:30 Dose: 200 mg - Objective Vital Signs: Vital Signs Temperature 98.6 F 02/27/19 08:00 Pulse Rate 80 02/27/19 08:00 Respiratory Rate 24 H 02/27/19 08:00 Blood Pressure 124/56 L 02/27/19 08:00 O2 Sat by Pulse Oximetry (%) 98 02/27/19 09:00 Cardiovascular: Yes: Regular Rate and Rhythm Respiratory: Yes: Rales (at the bases) Gastrointestinal: Yes: Normal Bowel Sounds, Soft. No: Tenderness Labs: CBC, BMP 02/27/19 05:40 02/26/19 05:25 INR, PTT INR 1.24 (0.83-1.09) H 02/24/19 20:58 Problem List - Problems (1) GI bleed Assessment/Plan: -Transfused prbc and ffp -icu care -h/o etoh abuse--no ulcer -EGD oozing --clip placed -Colon-Diverticulosis--no active bleeding -ivf -ppi drip -gi consult--d/w dr lopez Code(s): K92.2 - GASTROINTESTINAL HEMORRHAGE, UNSPECIFIED (2) Anemia Assessment/Plan: transfuse -as above Code(s): D64.9 - ANEMIA, UNSPECIFIED (3) Hypotension Assessment/Plan: due to gi bleed transfused stble bp now Code(s): I95.9 - HYPOTENSION, UNSPECIFIED (4) HLD (hyperlipidemia) Code(s): E78.5 - HYPERLIPIDEMIA, UNSPECIFIED (5) HTN (hypertension) Assessment/Plan: hold meds due to above Code(s): I10 - ESSENTIAL (PRIMARY) HYPERTENSION (6) Carotid stenosis Assessment/Plan: asymptomatic Code(s): I65.29 - OCCLUSION AND STENOSIS OF UNSPECIFIED CAROTID ARTERY (7) Chest pain Assessment/Plan: maybe due to compresion troponin mild elevated--maybe due to demand ischemia vs compressions cardio noted stres test as outpatient Code(s): R07.9 - CHEST PAIN, UNSPECIFIED (8) Troponin level elevated Assessment/Plan: as above Code(s): R74.8 - ABNORMAL LEVELS OF OTHER SERUM ENZYMES (9) Back pain Assessment/Plan: maybe muscular vs atelectasis nebs -CTA--cancelled -cxr Code(s): M54.9 - DORSALGIA, UNSPECIFIED
[2019-02-27] MEDS: MULTIVIT INJ. ADULT COMBO WITH VIT K 1 COMBO 10 ML VIAL IV SCH (09:56)
[2019-02-27] MEDS: THIAMINE HCL 200 MG/2 ML VIAL IM SCH (09:57)
[2019-02-27] MEDS: PANTOPRAZOLE 40 MG TABLET (FP) PO SCH ×2 (10:00→21:18)
[2019-02-27] MEDS: MUPIROCIN 2% TOPICAL OINTMENT FOR DECOLONIZATION NS SCH ×2 (10:00→21:18)
[2019-02-27 11:29] LABS: ANISOCYTOSIS 0; MACROCYTOSIS 0; PLATELET ESTIMATE DECREASED
[2019-02-27 14:56] LABS: HEMATOCRIT 26.9 % (32.4-45.2); HEMOGLOBIN 9.2 GM/dL (10.7-15.3); MCH 32.2 pg (25.7-33.7); MCHC 34.1 g/dl (32.0-36.0); MEAN CELL VOLUME 94.2 fl (80-96); MEAN PLT VOLUME 8.9 fl (7.5-11.1); PLATELET COUNT 91 K/MM3 (134-434); RBC 2.85 M/mm3 (3.60-5.2); WHITE BLOOD COUNT 5.9 K/mm3 (4.0-10.0)
--- NOTE | 2019-02-27 16:24 | PN.GI ---
GI Progress Note Subjective: GI NOte ( covering Dr. Khan): NO BMs today. Hb stable. No pain - Objective Vital Signs: Vital Signs Temperature 98.6 F 02/27/19 14:00 Pulse Rate 91 H 02/27/19 14:00 Respiratory Rate 23 H 02/27/19 14:00 Blood Pressure 118/53 L 02/27/19 14:00 O2 Sat by Pulse Oximetry (%) 98 02/27/19 09:00 Laboratory Tests 02/25/19 02/26/19 02/26/19 19:15 05:25 14:33 Hgb 8.9 L BUN 23.8 H 19.7 H Creatinine 0.6 0.6 02/27/19 02/27/19 05:40 14:45 Hgb 8.4 L 9.2 L BUN Creatinine Constitutional: Calm ...Auscultate: Yes: Normoactive Bowel Sounds ...Palpate: Yes: Soft, Other (nontender) Labs: CBC, BMP 02/27/19 14:45 02/26/19 05:25 INR, PTT INR 1.24 (0.83-1.09) H 02/24/19 20:58 Assessment/Plan Assessment : - Bleeding appears to have stopped. Plan: -- Advance to soft diet -- Advised capsule endoscopy as outpatient Problem List - Problems (1) Diverticular hemorrhage Code(s): K57.31 - DVRTCLOS OF LG INT W/O PERFORATION OR ABSCESS W BLEEDING (2) Anemia Code(s): D64.9 - ANEMIA, UNSPECIFIED (3) GI bleed Code(s): K92.2 - GASTROINTESTINAL HEMORRHAGE, UNSPECIFIED (4) HLD (hyperlipidemia) Code(s): E78.5 - HYPERLIPIDEMIA, UNSPECIFIED (5) HTN (hypertension) Code(s): I10 - ESSENTIAL (PRIMARY) HYPERTENSION
[2019-02-27] MEDS: SODIUM CHLORIDE 1,000 ML IV SCH (16:43)
[2019-02-27] MEDS: CHLORHEXIDINE GLUCONATE 4% CLEANSER FOR DECOLONIZATION TP SCH (21:18)
[2019-02-28 06:42] LABS: BASO % 1.9 % (0-2.0); EOS % 2.2 % (0-4.5); HEMATOCRIT 22.8 % (32.4-45.2); LYMPH % 41.5 % (8-40); MCH 32.6 pg (25.7-33.7); MCHC 34.9 g/dl (32.0-36.0); MEAN CELL VOLUME 93.4 fl (80-96); MONO % 10.6 % (3.8-10.2); NEUT % 43.8 % (42.8-82.8); PLATELET COUNT 91 K/MM3 (134-434); RBC 2.44 M/mm3 (3.60-5.2); RDW 16.6 % (11.6-15.6); WHITE BLOOD COUNT 5.6 K/mm3 (4.0-10.0)
--- NOTE | 2019-02-28 07:42 | PN ---
Progress Note, Physician History of Present Illness: no complaints of bleeding or abd pain - Current Medication List Current Medications: Active Medications Acetaminophen (Tylenol -) 650 mg PO Q4H PRN PRN Reason: MODERATE PAIN Albuterol/Ipratropium (Duoneb -) 1 amp NEB RQID [facility] Last Admin: 02/27/19 21:15 Dose: 1 amp Chlorhexidine Gluconate (Hibiclens For Decolonization -) 1 applic TP HS [facility] Last Admin: 02/27/19 21:18 Dose: 1 applic Mupirocin (Bactroban Ointment (For Decolonization) -) 1 applic NS BID [facility] Stop: 03/02/19 09:59 Last Admin: 02/27/19 21:18 Dose: 1 applic Pantoprazole Sodium (Protonix -) 40 mg PO BID [facility] Last Admin: 02/27/19 21:18 Dose: 40 mg - Objective Vital Signs: Vital Signs Temperature 98.2 F 02/28/19 06:00 Pulse Rate 72 02/28/19 06:00 Respiratory Rate 19 02/28/19 06:00 Blood Pressure 112/63 02/28/19 06:00 O2 Sat by Pulse Oximetry (%) 98 02/27/19 21:45 Cardiovascular: Yes: Regular Rate and Rhythm Respiratory: Yes: Regular, CTA Bilaterally Gastrointestinal: Yes: Normal Bowel Sounds, Soft Labs: CBC, BMP 02/28/19 05:35 02/26/19 05:25 INR, PTT INR 1.24 (0.83-1.09) H 02/24/19 20:58 Problem List - Problems (1) GI bleed Assessment/Plan: -Transfused prbc and ffp -icu care -h/o etoh abuse--no ulcer -EGD oozing --clip placed -Colon-Diverticulosis--no active bleeding -ivf -ppi drip -gi consult--d/w dr lopez -Hbg 8-- repeat stst Code(s): K92.2 - GASTROINTESTINAL HEMORRHAGE, UNSPECIFIED (2) Anemia Assessment/Plan: transfuse -as above Code(s): D64.9 - ANEMIA, UNSPECIFIED (3) Hypotension Assessment/Plan: due to gi bleed transfused stble bp now Code(s): I95.9 - HYPOTENSION, UNSPECIFIED (4) HLD (hyperlipidemia) Code(s): E78.5 - HYPERLIPIDEMIA, UNSPECIFIED (5) HTN (hypertension) Assessment/Plan: hold meds due to above Code(s): I10 - ESSENTIAL (PRIMARY) HYPERTENSION (6) Carotid stenosis Assessment/Plan: asymptomatic Code(s): I65.29 - OCCLUSION AND STENOSIS OF UNSPECIFIED CAROTID ARTERY (7) Chest pain Assessment/Plan: maybe due to compresion troponin mild elevated--maybe due to demand ischemia vs compressions cardio noted stres test as outpatient Code(s): R07.9 - CHEST PAIN, UNSPECIFIED (8) Troponin level elevated Code(s): R74.8 - ABNORMAL LEVELS OF OTHER SERUM ENZYMES (9) Back pain Code(s): M54.9 - DORSALGIA, UNSPECIFIED
[2019-02-28] MEDS: ALBUTEROL SO4 2.5/IPRATROPIUM 0.5 INH SOL 3 ML VIAL.NEB. NEB SCH ×4 (07:45→20:20)
[2019-02-28] MEDS: MUPIROCIN 2% TOPICAL OINTMENT FOR DECOLONIZATION NS SCH ×2 (09:36→22:14)
[2019-02-28] MEDS: PANTOPRAZOLE 40 MG TABLET (FP) PO SCH ×2 (09:37→22:13)
[2019-02-28 11:33] LABS: ANISOCYTOSIS 1+; MACROCYTOSIS 1+; OVALOCYTE 1+; PLATELET ESTIMATE DECREASED
--- NOTE | 2019-02-28 11:53 | PN ---
Physical Exam: SUBJECTIVE: Patient seen and examined at bedside. Patient was up out of bed eating breakfast and stated she was comfortable. Patient reported that she had not yet had a BM but attributed this to being NPO, she was tolerating her diet well. OBJECTIVE: Vital Signs Period Temp Pulse Resp BP Sys/[place]over Pulse Ox Last 24 Hr 98 F-98.6 F 72-103 18-24 111-134/50-96 98-98 GENERAL: The patient is awake, alert, and fully oriented, in no acute distress. HEAD: Normal with no signs of trauma. EYES: PERRL, extraocular movements intact, sclera anicteric, conjunctiva clear. ENT: Ears normal, nares patent, oropharynx clear without exudates, moist mucous membranes. NECK: Trachea midline, supple. LUNGS: Breath sounds equal, clear to auscultation bilaterally, no wheezes, no crackles, no accessory muscle use. HEART: Regular rate and rhythm, S1, S2 without murmurs. ABDOMEN: Soft, nontender, nondistended, normoactive bowel sounds, no guarding. EXTREMITIES: 2+ pulses, warm, well-perfused, no edema. NEUROLOGICAL: Cranial nerves II through XII grossly intact. Normal speech, gait not observed. PSYCH: Normal mood, normal affect. SKIN: Warm, dry, normal turgor, no rashes or lesions noted Laboratory Results - last 24 hr 02/24/19 02/27/19 02/28/19 20:58 14:45 05:35 WBC 5.9 5.6 RBC 2.85 L 2.44 L Hgb 9.2 L 8.0 L Hct 26.9 L D 22.8 L D MCV 94.2 93.4 MCH 32.2 32.6 MCHC 34.1 34.9 RDW 17.0 H 16.6 H Plt Count 91 L 91 L MPV 8.9 10.0 D Absolute Neuts (auto) 2.4 Neutrophils % 43.8 Neutrophils % (Manual) 50.0 Band Neutrophils % 11.8 Lymphocytes % 41.5 H D Lymphocytes % (Manual) 20.6 D Monocytes % 10.6 H Monocytes % (Manual) 11 H Eosinophils % 2.2 Eosinophils % (Manual) 1.9 Basophils % 1.9 Basophils % (Manual) 2.9 H Myelocytes % (Man) 0 Promyelocytes % (Man) 0 Blast Cells % (Manual) 0 Nucleated RBC % 0 Metamyelocytes 0 Hypochromia 0 Platelet Estimate Decreased Polychromasia 0 Poikilocytosis 0 Anisocytosis 1+ Microcytosis 0 Macrocytosis 1+ Ovalocytes 1+ Blood Type A POSITIVE Antibody Screen Negative Crossmatch See Detail 02/28/19 08:47 WBC RBC Hgb Hct MCV MCH MCHC RDW Plt Count MPV Absolute Neuts (auto) Neutrophils % Neutrophils % (Manual) Band Neutrophils % Lymphocytes % Lymphocytes % (Manual) Monocytes % Monocytes % (Manual) Eosinophils % Eosinophils % (Manual) Basophils % Basophils % (Manual) Myelocytes % (Man) Promyelocytes % (Man) Blast Cells % (Manual) Nucleated RBC % Metamyelocytes Hypochromia Platelet Estimate Polychromasia Poikilocytosis Anisocytosis Microcytosis Macrocytosis Ovalocytes Blood Type A POSITIVE Antibody Screen Negative Crossmatch Active Medications Generic Name Dose Route Start Last Admin Trade Name Freq PRN Reason Stop Dose Admin Acetaminophen 650 mg 02/27/19 07:55 Tylenol - PO Q4H PRN MODERATE PAIN Albuterol/Ipratropium 1 amp 02/26/19 12:00 02/28/19 11:16 Duoneb - NEB 1 amp RQID [facility] Administration Chlorhexidine Gluconate 1 applic 02/25/19 22:00 02/27/19 21:18 Hibiclens For Decolonization - TP 1 applic HS [facility] Administration Mupirocin 1 applic 02/25/19 10:00 02/28/19 09:36 Bactroban Ointment (For Decolonization) - NS 03/02/19 09:59 1 applic BID [facility] Administration Pantoprazole Sodium 40 mg 02/27/19 10:00 02/28/19 09:37 Protonix - PO 40 mg BID [facility] Administration ASSESSMENT/PLAN: Ms. Up is a 74 y/o woman with a PMHx of HTN, HLD, Thyroid Nodule admitted to the ICU for a lower GI bleed most likely 2/2 diverticulosis of large intestine. Patient will need to follow up with GI as an outpatient. GI Bleed Acute Blood Loss Anemia Hemorrhagic/Hypovolemic Shock h/o HTN Hyperlipidemia Neurologic -patient is AOx4 -currently stable Pulmonary -no acute changes, breathing comfortably on room air Cardiovascular - Hypotension secondary to GI bleeding, BP now stable (112/63 MAP 75 today) - continue to holding anti-HTN meds - protonix as per GI - large bore peripheral access - Troponin elevated on admission, consider stress test as outpatient GI - continue to advance diet - GI f/u, out pt capsule study Heme - monitor CBC, coags - this morning it appeared HgB dropped from 9>8, however repeat was 8.8 so it is unlikely the measurement of 8 was accurate. Additionally the patient does not report any further signs of bleeding including bright red, or black tarry stools. FEN F: PO E: monitor, replete prn N: Soft diet, advance as tolerated PPX: GI- protonix 40mg PO BID DVT- ambulate Dispo: Patient is stable for transfer to telemetry for further monitoring. Visit type - Emergency Visit Emergency Visit: Yes ED Registration Date: 02/24/19 Care time: The patient presented to the Emergency Department on the above date and was hospitalized for further evaluation of their emergent condition. - New Patient This patient is new to me today: Yes Date on this admission: 02/28/19 - Critical Care Critical Care patient: Yes Total Critical Care Time (in minutes): 40 Critical Care Statement: The care of this patient involved high complexity decision making to prevent further life threatening deterioration of the patient 's condition and/or to evaluate & treat vital organ system(s) failure or risk of failure. ATTENDING PHYSICIAN STATEMENT I saw and evaluated the patient. I reviewed the resident's note and discussed the case with the resident. I agree with the resident's findings and plan as documented. SUBJECTIVE: OBJECTIVE: ASSESSMENT AND PLAN:
[2019-02-28 12:07] LABS: BASO % 1.9 % (0-2.0); EOS % 1.1 % (0-4.5); HEMATOCRIT 25.5 % (32.4-45.2); HEMOGLOBIN 8.8 GM/dL (10.7-15.3); LYMPH % 45.8 % (8-40); MCH 32.3 pg (25.7-33.7); MCHC 34.3 g/dl (32.0-36.0); MEAN CELL VOLUME 94.1 fl (80-96); MEAN PLT VOLUME 9.2 fl (7.5-11.1); MONO % 9.2 % (3.8-10.2); PLATELET COUNT 98 K/MM3 (134-434); RBC 2.71 M/mm3 (3.60-5.2); RDW 16.7 % (11.6-15.6); WHITE BLOOD COUNT 6.6 K/mm3 (4.0-10.0)
--- NOTE | 2019-02-28 12:48 | PN ---
Teaching Attending Note Name of Resident: Keturah Hernández ATTENDING PHYSICIAN STATEMENT I saw and evaluated the patient. I reviewed the resident's note and discussed the case with the resident. I agree with the resident's findings and plan as documented. SUBJECTIVE: Patient seen and examined in the ICU. Awake and alert. No occult bleeding noted. Noted slight down trending of H&H. OBJECTIVE: Intake & Output 02/25/19 02/26/19 02/27/19 02/28/19 23:59 23:59 23:59 23:59 Intake Total 2551 3446 770 0 Balance 2551 3446 770 0 Weight 194 lb 197 lb 6 oz Last Vital Signs Temp Pulse Resp BP Pulse Ox 98.0 F 85 19 126/62 98 02/28/19 12:00 02/28/19 12:00 02/28/19 12:00 02/28/19 12:00 02/28/19 08:00 Active Medications Acetaminophen (Tylenol -) 650 mg PO Q4H PRN PRN Reason: MODERATE PAIN Albuterol/Ipratropium (Duoneb -) 1 amp NEB RQID [facility] Last Admin: 02/28/19 11:16 Dose: 1 amp Chlorhexidine Gluconate (Hibiclens For Decolonization -) 1 applic TP HS [facility] Last Admin: 02/27/19 21:18 Dose: 1 applic Mupirocin (Bactroban Ointment (For Decolonization) -) 1 applic NS BID [facility] Stop: 03/02/19 09:59 Last Admin: 02/28/19 09:36 Dose: 1 applic Pantoprazole Sodium (Protonix -) 40 mg PO BID [facility] Last Admin: 02/28/19 09:37 Dose: 40 mg Gen: NAD at rest Heart: RRR Lung: clear bilaterally, tender to palpation across chest 2/2 compressions Abd: soft, nontender, + BS Ext: no edema Neuro: awake non-focal, no distress ASSESSMENT AND PLAN: GI Bleed Acute Blood Loss Anemia Hemorrhagic/Hypovolemic Shock h/o HTN Hyperlipidemia - Recheck H&H - PPI per GI - Diet per GI - DVT prophylaxis - Floor or DC Dr Pleitez
--- NOTE | 2019-02-28 13:09 | PN ---
Progress Note (short form) - Note Progress Note: GI covering for Dr. Khan Patient seen/examined in the ICU, sitting up in chair Tolerating PO Still no bm initial hgb this morning down to 8 but I believe spuriously low as repeat 8.8 Vital Signs Temp 98.0 F 02/28/19 12:00 Pulse 85 02/28/19 12:00 Resp 19 02/28/19 12:00 BP 126/62 02/28/19 12:00 Pulse Ox 98 02/28/19 08:00 NAD soft NT ND CBC, BMP 02/28/19 11:51 02/26/19 05:25 Impression: likely hemorrhagic shock from lower GI bleed, ? diverticular vs other. No longer bleeding. Should follow up for further evaluation with Dr. Khan as an outpatient.
[2019-02-28] MEDS ORDERED: SODIUM CHLORIDE 1,000 ML IV STA (14:06)
[2019-02-28] MEDS: ACETAMINOPHEN 325 MG TABLET (FP) PO PRN ×2 (14:40→22:13)
[2019-02-28] MEDS: CHLORHEXIDINE GLUCONATE 4% CLEANSER FOR DECOLONIZATION TP SCH (22:14)
[2019-03-01 07:12] LABS: BASO % 2.6 % (0-2.0); EOS % 3.4 % (0-4.5); HEMATOCRIT 23.4 % (32.4-45.2); HEMOGLOBIN 8.1 GM/dL (10.7-15.3); LYMPH % 40.4 % (8-40); MCH 32.3 pg (25.7-33.7); MCHC 34.6 g/dl (32.0-36.0); MEAN CELL VOLUME 93.3 fl (80-96); MEAN PLT VOLUME 9.5 fl (7.5-11.1); NEUT % 43.6 % (42.8-82.8); PLATELET COUNT 104 K/MM3 (134-434); RBC 2.51 M/mm3 (3.60-5.2); RDW 16.9 % (11.6-15.6); WHITE BLOOD COUNT 5.2 K/mm3 (4.0-10.0)
[2019-03-01] MEDS: ALBUTEROL SO4 2.5/IPRATROPIUM 0.5 INH SOL 3 ML VIAL.NEB. NEB SCH ×4 (07:40→20:51)
[2019-03-01] MEDS: ACETAMINOPHEN 325 MG TABLET (FP) PO PRN ×2 (08:37→12:06)
[2019-03-01] MEDS: MUPIROCIN 2% TOPICAL OINTMENT FOR DECOLONIZATION NS SCH ×2 (10:09→21:39)
[2019-03-01] MEDS: PANTOPRAZOLE 40 MG TABLET (FP) PO SCH ×2 (10:11→21:38)
--- NOTE | 2019-03-01 10:40 | PN.GI ---
GI Progress Note Subjective: No overt bleeding States having 2 formed non-bloody BM's today - Objective Vital Signs: Vital Signs Temperature 98.2 F 02/28/19 14:00 Pulse Rate 83 02/28/19 14:00 Respiratory Rate 19 02/28/19 21:00 Blood Pressure 127/62 02/28/19 14:00 O2 Sat by Pulse Oximetry (%) 98 02/28/19 21:00 Constitutional: Calm Eyes: No: Sclera Icterus Cardiovascular: Yes: Regular Rate and Rhythm. No: Murmur Respiratory: Yes: CTA Bilaterally Gastrointestinal Inspection: No: Distention ...Auscultate: Yes: Normoactive Bowel Sounds ...Palpate: Yes: Soft. No: Tenderness ...Percussion: No: Tympanitic Edema: Yes Edema: LLE: Trace, RLE: Trace Neurological: Yes: Alert Labs: CBC, BMP 03/01/19 05:50 02/26/19 05:25 INR, PTT INR 1.24 (0.83-1.09) H 02/24/19 20:58 Hepatic Panel Total Bilirubin 0.8 mg/dL (0.2-1) 02/26/19 05:25 AST 39 U/L (15-37) H 02/26/19 05:25 ALT 27 U/L (13-61) 02/26/19 05:25 Alkaline Phosphatase 58 U/L (45-117) 02/26/19 05:25 Albumin 2.1 g/dl (3.4-5.0) L 02/26/19 05:25 Problem List - Problems (1) GI bleed Assessment/Plan: No further bleeding Outpatient follow-up with Dr. Khan to discuss capsule endoscopy and for follow -up of abnormal CT scan findings (Dilated PD (chronic) and more prominent CBD) Thrombocytopenic on admission. ? etiology. Further eval per heme. Avoid NSAIDs Code(s): K92.2 - GASTROINTESTINAL HEMORRHAGE, UNSPECIFIED
[2019-03-01 11:23] LABS: ANISOCYTOSIS 1+; MACROCYTOSIS 1+; PLATELET ESTIMATE DECREASED
--- NOTE | 2019-03-01 16:06 | PN ---
Progress Note, Physician Chief Complaint: GI bleed History of Present Illness: Previous notes and events reviewed awake and alert NAD no reports of blood in stool or rectal bleeding Hg 8.1 denies chest pain or SOB - Current Medication List Current Medications: Active Medications Acetaminophen (Tylenol -) 650 mg PO Q4H PRN PRN Reason: MODERATE PAIN Last Admin: 03/01/19 12:06 Dose: 650 mg Albuterol/Ipratropium (Duoneb -) 1 amp NEB RQID [facility] Last Admin: 03/01/19 11:45 Dose: 1 amp Chlorhexidine Gluconate (Hibiclens For Decolonization -) 1 applic TP HS [facility] Last Admin: 02/28/19 22:14 Dose: 1 applic Mupirocin (Bactroban Ointment (For Decolonization) -) 1 applic NS BID [facility] Stop: 03/02/19 09:59 Last Admin: 03/01/19 10:09 Dose: Not Given Pantoprazole Sodium (Protonix -) 40 mg PO BID [facility] Last Admin: 03/01/19 10:11 Dose: 40 mg - Objective Vital Signs: Vital Signs Temperature 98.2 F 03/01/19 15:16 Pulse Rate 93 H 03/01/19 15:16 Respiratory Rate 18 03/01/19 15:16 Blood Pressure 110/59 L 03/01/19 15:16 O2 Sat by Pulse Oximetry (%) 98 02/28/19 21:00 Constitutional: Yes: No Distress, Calm Eyes: Yes: Conjunctiva Clear HENT: Yes: Atraumatic Cardiovascular: Yes: Regular Rate and Rhythm Respiratory: Yes: Regular, CTA Bilaterally Gastrointestinal: Yes: Normal Bowel Sounds, Soft Musculoskeletal: Yes: WNL Extremities: Yes: WNL Edema: No Neurological: Yes: Alert, Oriented Psychiatric: Yes: Alert, Oriented Labs: CBC, BMP 03/01/19 05:50 02/26/19 05:25 INR, PTT INR 1.24 (0.83-1.09) H 02/24/19 20:58 Problem List - Problems (1) Anemia Assessment/Plan: -Hg 8.1 -transfuse for Hg <8.0 -monitor Hg daily Code(s): D64.9 - ANEMIA, UNSPECIFIED (2) Back pain Assessment/Plan: -pain control Code(s): M54.9 - DORSALGIA, UNSPECIFIED (3) Chest pain Assessment/Plan: -2/2 to compression? -trop 0.10, 0.06, 0.02 Code(s): R07.9 - CHEST PAIN, UNSPECIFIED (4) GI bleed Assessment/Plan: -GI on board -Hg 8.1 -monitor Hg and transfuse for Hg <8.0 -EGD showed mucosal split in jejunum--clipped -Colonoscopy showed diverticulosis -Pantoprazole Code(s): K92.2 - GASTROINTESTINAL HEMORRHAGE, UNSPECIFIED (5) HLD (hyperlipidemia) Code(s): E78.5 - HYPERLIPIDEMIA, UNSPECIFIED (6) HTN (hypertension) Assessment/Plan: -monitor BP -low Na diet Code(s): I10 - ESSENTIAL (PRIMARY) HYPERTENSION Assessment/Plan see problem list
[2019-03-01] MEDS: LIDOCAINE 5% TOPICAL PATCH TP SCH (16:46)
[2019-03-01 21:24] LABS: HEMOGLOBIN 9.1 GM/dL (10.7-15.3); MCH 32.3 pg (25.7-33.7); MCHC 33.8 g/dl (32.0-36.0); MEAN CELL VOLUME 95.4 fl (80-96); PLATELET COUNT 115 K/MM3 (134-434); RBC 2.83 M/mm3 (3.60-5.2); WHITE BLOOD COUNT 7.7 K/mm3 (4.0-10.0)
[2019-03-01] MEDS ORDERED: PT OWN MED DRAWER 7, Y5N ONE ×2 (21:34→23:19)
[2019-03-01] MEDS ORDERED: LIDOCAINE PATCH REMOVAL MC SCH (22:00)
[2019-03-01] MEDS: CHLORHEXIDINE GLUCONATE 4% CLEANSER FOR DECOLONIZATION TP SCH (23:02)
[2019-03-02] MEDS ORDERED: PT OWN MED DRAWER 7, Y5N ONE (05:38)
[2019-03-02] MEDS: ACETAMINOPHEN 325 MG TABLET (FP) PO PRN (06:48)
[2019-03-02 07:02] LABS: HEMATOCRIT 23.9 % (32.4-45.2); HEMOGLOBIN 8.3 GM/dL (10.7-15.3); MCH 32.4 pg (25.7-33.7); MCHC 34.9 g/dl (32.0-36.0); MEAN CELL VOLUME 93.1 fl (80-96); MEAN PLT VOLUME 9.4 fl (7.5-11.1); PLATELET COUNT 112 K/MM3 (134-434); RBC 2.57 M/mm3 (3.60-5.2); RDW 16.7 % (11.6-15.6); WHITE BLOOD COUNT 6.3 K/mm3 (4.0-10.0)
[2019-03-02 07:25] LABS: ALBUMIN 2.1 g/dl (3.4-5.0); BILIRUBIN,TOTAL 1.1 mg/dL (0.2-1); BLOOD UREA NITROGEN 9.9 mg/dL (7-18); CALCIUM 7.6 mg/dL (8.5-10.1); CREATININE 0.5 mg/dL (0.55-1.3); POTASSIUM 3.7 mmol/L (3.5-5.1); TOT PROT 4.5 g/dl (6.4-8.2)
[2019-03-02] MEDS: ALBUTEROL SO4 2.5/IPRATROPIUM 0.5 INH SOL 3 ML VIAL.NEB. NEB SCH ×3 (07:25→15:32)
[2019-03-02] MEDS ORDERED: traMADol HCL 50 MG TABLET PO PRN (08:32)
--- NOTE | 2019-03-02 08:36 | DS ---
Physical Examination Vital Signs: Vital Signs Temperature 98.4 F 03/02/19 08:30 Pulse Rate 85 03/02/19 08:30 Respiratory Rate 18 03/02/19 08:30 Blood Pressure 135/53 L 03/02/19 08:30 O2 Sat by Pulse Oximetry (%) 98 02/28/19 21:00 Cardiovascular: Yes: Regular Rate and Rhythm Respiratory: Yes: Regular, CTA Bilaterally Gastrointestinal: Yes: Normal Bowel Sounds, Soft Labs: CBC, BMP 03/02/19 05:49 03/02/19 05:49 Discharge Summary Reason For Visit: GI BLEED Current Active Problems Anemia (Acute) Back pain (Acute) Carotid stenosis (Acute) Chest pain (Acute) Diverticular hemorrhage (Acute) GI bleed (Acute) HLD (hyperlipidemia) (Acute) HTN (hypertension) (Acute) Hypotension (Acute) Lower GI bleed (Acute) Troponin level elevated (Acute) Hospital Course: - Problems (1) Anemia Assessment/Plan: -Hg 8.1--repeat -transfuse for Hg <8.0 -monitor Hg daily Code(s): D64.9 - ANEMIA, UNSPECIFIED (2) Back pain Assessment/Plan: -pain control -Add tramadol -Rib series Code(s): M54.9 - DORSALGIA, UNSPECIFIED (3) Chest pain Assessment/Plan: -2/2 to compression? -trop 0.10, 0.06, 0.02 -Outpatient stress test Code(s): R07.9 - CHEST PAIN, UNSPECIFIED (4) GI bleed Assessment/Plan: -GI on board -Hg 8.1 -monitor Hg and transfuse for Hg <8.0 -EGD showed mucosal split in jejunum--clipped -Colonoscopy showed diverticulosis -Pantoprazole Code(s): K92.2 - GASTROINTESTINAL HEMORRHAGE, UNSPECIFIED (5) HLD (hyperlipidemia) Code(s): E78.5 - HYPERLIPIDEMIA, UNSPECIFIED (6) HTN (hypertension) Assessment/Plan: -monitor BP -low Na diet Code(s): I10 - ESSENTIAL (PRIMARY) HYPERTENSION Condition: Fair - Instructions Referrals: Haley Wellington MD [Primary Care Provider] - Disposition: HOME - Home Medications Comprehensive Discharge Medication List: Ambulatory Orders Calcitonin-[place] [Miacalcin [place] -] 3.7 ml NS DAILY 05/05/12 Timolol 0.25% [Timoptic 0.25%] 1 drop OU DAILY 05/05/12 Atorvastatin Ca [Lipitor] 10 mg PO HS 02/24/19 Lidocaine 5% Patch [Lidoderm -] 1 patch TP DAILY #15 patch 03/02/19 Pantoprazole Sodium [Protonix -] 40 mg PO BID #60 tablet.ec 03/02/19 traMADol HCL [Ultram -] 50 mg PO Q8H PRN #20 tablet MDD 3 03/02/19
[2019-03-02 09:53] LABS: HEMATOCRIT 26.2 % (32.4-45.2); HEMOGLOBIN 9.1 GM/dL (10.7-15.3); MCH 32.7 pg (25.7-33.7); MCHC 34.7 g/dl (32.0-36.0); MEAN CELL VOLUME 94.2 fl (80-96); MEAN PLT VOLUME 9.4 fl (7.5-11.1); PLATELET COUNT 122 K/MM3 (134-434); RBC 2.78 M/mm3 (3.60-5.2)
[2019-03-02] MEDS: LIDOCAINE 5% TOPICAL PATCH TP SCH (09:59)
[2019-03-02] MEDS: PANTOPRAZOLE 40 MG TABLET (FP) PO SCH (10:00)
[2019-03-02] MEDS ORDERED: FERRIC CARBOXYMALTOSE 750 MG in SODIUM CHLORIDE 250 ML IVPB ONE (10:30)
[2019-03-02 15:21] VITALS: BP 143/60; PULSE 96; TEMP 98.6
--- NOTE | 2019-03-03 16:13 | PATH ---
Surgical Pathology Report Patient Name: ROXIE RODRIGEZ Med. Rec. #: [id number] /Age/Gender: 1945 (Age: 74) / F Account: [id number] Location: [facility] MED/SURG Taken: 03/01/2019 Received: 03/02/2019 Reported: 03/03/2019 Physicians: Dina Santana M.D. Specimen(s) Received PERIPHERAL BLOOD IN 2 GREEN TOP TUBES Clinical History Low platelets, rule out lymphoproliferative disorder, rule out MDS Final Diagnosis COMPREHENSIVE FL[place] [facility] [place] ([id number][place] shows the following: INTERPRETATION: In the samples analyzed, there is no definite evidence of B or T-cell proliferative disorders or increased blasts. See Emerge report ([id number]) for additional details. Electronically Signed Conner Patel M.D. Addendum Reported: 03/08/2019 Addendum Diagnosis [facility] [place] [place] ([id number][facility] shows the following: Myelodysplasia FISH Panel Interpretation: No evidence of deletion 5q or monosomy 5 is present. No evidence of deletion 7q or monosomy 7 is present. No evidence of trisomy 8 (+8) is present. No evidence of deletion 13q14.2 is present. No evidence of a rearrangement of 11q23. No evidence of a deletion of the p53 (17p13) locus. No evidence of deletion 20q12 is present. Comments: Seven multiplex probe stain procedures were performed. Electronically Signed By: Gerardo Malik See emerge report ([id number]) for details. Conner Patel M.D. Gross Description Received are 2 green top tubes of blood which are sent to [facility]. 03/02/201903/02/2019
== END 2019-03-02 17:04 | disposition home or self-care (01) | DRG 377 ==
LOC: JER 19:42 → JERBED 23:28 → JICU 02-25 09:28 → J8W 02-28 14:14
PROVIDERS: ADMIT Family Medicine; ATTEND Family Medicine
PROC: 30233N1 Transfusion of Nonautologous Red Blood Cells into Peripheral Vein, Percutaneous Approach (ICD-10-PCS; 2019-02-25)
PROC: 5A12012 Performance of Cardiac Output, Single, Manual (ICD-10-PCS; 2019-02-25)
PROC: 0BH17EZ Insertion of Endotracheal Airway into Trachea, Via Natural or Artificial Opening (ICD-10-PCS; 2019-02-25)
PROC: 5A1935Z Respiratory Ventilation, Less than 24 Consecutive Hours (ICD-10-PCS; 2019-02-25)
PROC: 0DJD8ZZ Inspection of Lower Intestinal Tract, Via Natural or Artificial Opening Endoscopic (ICD-10-PCS; 2019-02-25)
PROC: 30233K1 Transfusion of Nonautologous Frozen Plasma into Peripheral Vein, Percutaneous Approach (ICD-10-PCS; 2019-02-25)
PROC: 30233P1 Transfusion of Nonautologous Frozen Red Cells into Peripheral Vein, Percutaneous Approach (ICD-10-PCS; 2019-02-25)
PROC: 0W3P8ZZ Control Bleeding in Gastrointestinal Tract, Via Natural or Artificial Opening Endoscopic (ICD-10-PCS; principal; 2019-02-25 14:30)
DX: K57.31 Diverticulosis of large intestine without perforation or abscess with bleeding (principal); R57.1 Hypovolemic shock; R57.8 Other shock; D62 Acute posthemorrhagic anemia; I24.8 Other forms of acute ischemic heart disease; N39.0 Urinary tract infection, site not specified; I10 Essential (primary) hypertension; E78.5 Hyperlipidemia, unspecified; I95.9 Hypotension, unspecified; Z98.84 Bariatric surgery status; E04.1 Nontoxic single thyroid nodule; R73.03 Prediabetes; Z87.891 Personal history of nicotine dependence; I65.29 Occlusion and stenosis of unspecified carotid artery; Z90.710 Acquired absence of both cervix and uterus; K83.8 Other specified diseases of biliary tract; D69.6 Thrombocytopenia, unspecified
CPT/HCPCS: 36415; 36430; 36511; 70450-TC; 71045-TC-FY; 71101-TC-RT-FY; 72125-TC; 74174-TC; 80048; 80053; 82272; 82550; 82553; 82607; 82728; 82747; 83540; 83550; 83615; 83735; 84484; 85014; 85025; 85027; 85610; 85730; 86850; 86900; 86901; 86922; 88300-TC; 93005; 93010; 94640; 99285-25; J0131; J1439; J7030; P9017; P9038; P9058

== ENCOUNTER 2021-07-14 20:44 | Inpatient (IN) | payer OTHER ==
[2021-07-14 22:59] LABS: BASO % 0.7 % (0-2.0); HEMOGLOBIN 14.1 GM/dL (10.7-15.3); LYMPH % 29.5 % (8-40); MCH 35.6 pg (25.7-33.7); MCHC 33.7 g/dl (32.0-36.0); MEAN CELL VOLUME 105.7 fl (80-96); MONO % 10.2 % (3.8-10.2); NEUT % 58.6 % (42.8-82.8); PLATELET COUNT 89 10^3/uL (134-434); RBC 3.97 M/mm3 (3.60-5.2); RDW 15.5 % (11.6-15.6); WHITE BLOOD COUNT 6.2 K/mm3 (4.0-10.0)
[2021-07-14 23:11] LABS: CHLORIDE 94 mmol/L (98-107)
[2021-07-14] MEDS ORDERED: POTASSIUM CHLORIDE TABS 20 MEQ TABLET.ER (FP) PO ONE (23:27)
[2021-07-14] MEDS ORDERED: MAGNESIUM SULF 50% (8.12 MEQ/2 ML-1 GM VIAL) IVPB ONE (23:28)
[2021-07-14 23:58] LABS: ALBUMIN 3.5 g/dl (3.4-5.0)
[2021-07-15 00:02] LABS: ANISOCYTOSIS 1+; MACROCYTOSIS 1+; PLATELET ESTIMATE DECREASED; TOT PROT 6.4 g/dl (6.4-8.2)
[2021-07-15 00:04] LABS: ALK PHOS 98 U/L (45-117)
[2021-07-15] MEDS ORDERED: POTASSIUM CHLORIDE TABS 20 MEQ TABLET.ER (FP) PO ONE (00:07)
[2021-07-15] MEDS ORDERED: MAGNESIUM SULFATE IN WATER 2 GM/50 ML IVPB IVPB ONE (00:08)
[2021-07-15 00:16] LABS: BILIRUBIN,TOTAL 1.4 mg/dL (0.2-1)
[2021-07-15 01:39] LABS: EPI CELLS 20 /uL (0-25.1); HYALINE CASTS 8 /uL (0-3.1); URINE APPEARANCE TURBID; URINE BACTERIA >9,000 /uL (0-1359); URINE BILIRUBIN 2+ (NEGATIVE); URINE COLOR DK YELLOW; URINE GLUCOSE (UA) NEGATIVE (NEGATIVE); URINE KETONE 1+ (NEGATIVE); URINE LEUK ESTERASE 3+ (NEGATIVE); URINE NITRITE POSITIVE (NEGATIVE); URINE PROTEIN 1+ (NEGATIVE); URINE WBC 1207 /uL (0-25.8)
[2021-07-15] MEDS ORDERED: CEFTRIAXONE 1 GM in DEXTROSE 5%-WATER - 50 ML IVPB ONE (01:50)
[2021-07-15] MEDS ORDERED: SODIUM CHLORIDE 0.9% 500 ML INFUS.BAG IV ONE (02:21)
[2021-07-15] MEDS ORDERED: CEFTRIAXONE 1 GM/50 ML BAG ONE (02:31)
[2021-07-15 03:13] LABS: URINE RBC 38.3 /uL (0-23.9)
[2021-07-15] MEDS ORDERED: POLYETHYLENE GLYCOL (HEALTHYLAX) 3350 17 GM PACKET PO PRN (06:01)
[2021-07-15] MEDS ORDERED: ACETAMINOPHEN 325 MG TABLET (FP) PO PRN (06:01)
[2021-07-15] MEDS ORDERED: SODIUM CHLORIDE 1,000 ML IV SCH ×2 (06:15→11:31)
[2021-07-15] MEDS ORDERED: HEPARIN NA (PORCINE) 5,000 UNITS/ML 1ML VIAL ONE (07:00)
[2021-07-15] MEDS: HEPARIN NA (PORCINE) 5,000 UNITS/ML 1ML VIAL SQ SCH ×3 (07:09→21:50)
[2021-07-15] MEDS: INSULIN SLIDING SCALE (NOVOLOG) 1 VIAL SQ SCH ×4 (07:18→21:53)
[2021-07-15] MEDS: SODIUM CHLORIDE 1,000 ML IV SCH ×2 (11:58→22:57)
[2021-07-15 12:00] LABS: BASO % 0.9 % (0-2.0); EOS % 0.8 % (0-4.5); HEMATOCRIT 41.1 % (32.4-45.2); HEMOGLOBIN 13.8 GM/dL (10.7-15.3); LYMPH % 33.8 % (8-40); MCH 35.8 pg (25.7-33.7); MCHC 33.6 g/dl (32.0-36.0); MEAN CELL VOLUME 106.6 fl (80-96); MEAN PLT VOLUME 9.2 fl (7.5-11.1); NEUT % 53.5 % (42.8-82.8); PLATELET COUNT 92 10^3/uL (134-434); RBC 3.86 M/mm3 (3.60-5.2); WHITE BLOOD COUNT 5.6 K/mm3 (4.0-10.0)
[2021-07-15 12:21] LABS: INR 1.07 (0.83-1.09)
[2021-07-15 12:23] LABS: ACTIVATED PTT 25.2 SECONDS (25.2-36.5)
[2021-07-15 12:26] LABS: BLOOD UREA NITROGEN 19.7 mg/dL (7-18); CALCIUM 8.7 mg/dL (8.5-10.1)
[2021-07-15 12:27] LABS: ALBUMIN 3.5 g/dl (3.4-5.0); BILIRUBIN,TOTAL 1.2 mg/dL (0.2-1)
[2021-07-15 12:30] LABS: CREATININE 1.3 mg/dL (0.55-1.3)
[2021-07-15 12:32] LABS: TOT PROT 6.6 g/dl (6.4-8.2)
[2021-07-15 18:13] VITALS: BMI 29.0
[2021-07-16] MEDS: HEPARIN NA (PORCINE) 5,000 UNITS/ML 1ML VIAL SQ SCH ×3 (06:24→21:03)
[2021-07-16] MEDS: INSULIN SLIDING SCALE (NOVOLOG) 1 VIAL SQ SCH ×4 (06:28→21:03)
[2021-07-16 09:14] LABS: EOS % 2.5 % (0-4.5); LYMPH % 37.5 % (8-40); MONO % 12.6 % (3.8-10.2); NEUT % 46.4 % (42.8-82.8); RDW 15.9 % (11.6-15.6)
[2021-07-16 09:27] LABS: CALCIUM 8.4 mg/dL (8.5-10.1); HEMATOCRIT 38.5 % (32.4-45.2); HEMOGLOBIN 12.7 GM/dL (10.7-15.3); MCH 35.6 pg (25.7-33.7); MCHC 33.1 g/dl (32.0-36.0); MEAN CELL VOLUME 107.4 fl (80-96); MEAN PLT VOLUME 9.3 fl (7.5-11.1); PLATELET COUNT 86 10^3/uL (134-434); RBC 3.58 M/mm3 (3.60-5.2); WHITE BLOOD COUNT 4.3 K/mm3 (4.0-10.0)
[2021-07-16 09:28] LABS: ALBUMIN 2.9 g/dl (3.4-5.0); BLOOD UREA NITROGEN 17.9 mg/dL (7-18); MAGNESIUM 2.1 mg/dL (1.8-2.4)
[2021-07-16 09:31] LABS: CREATININE 0.9 mg/dL (0.55-1.3)
[2021-07-16 09:32] LABS: BILIRUBIN,TOTAL 1.2 mg/dL (0.2-1); TOT PROT 5.4 g/dl (6.4-8.2)
[2021-07-16] MEDS ORDERED: cefTRIAXone SODIUM 1 GM VIAL ONE (09:45)
[2021-07-16] MEDS: CEFTRIAXONE 1 GM in DEXTROSE 5%-WATER - 50 ML IVPB SCH (10:17)
[2021-07-16] MEDS ORDERED: POTASSIUM CHLORIDE TABS 20 MEQ TABLET.ER (FP) PO ONE (13:00)
[2021-07-16] MEDS: SODIUM CHLORIDE 1,000 ML IV SCH (13:13)
[2021-07-16 13:37] LABS: MAGNESIUM 1.8 mg/dL (1.8-2.4)
[2021-07-16] MEDS ORDERED: MAG HYDROX/AL HYDROX/SIMETH 30 ML UNIT-DOSE CUP PO PRN (19:41)
[2021-07-17] MEDS: HEPARIN NA (PORCINE) 5,000 UNITS/ML 1ML VIAL SQ SCH (05:13)
[2021-07-17 05:52] VITALS: BP 152/92; PULSE 88; TEMP 97.8
[2021-07-17] MEDS: INSULIN SLIDING SCALE (NOVOLOG) 1 VIAL SQ SCH (06:33)
[2021-07-17] MEDS ORDERED: DEXTROSE 5%-WATER - 50 ML IVPB ONE (09:59)
[2021-07-17] MEDS ORDERED: cefTRIAXone SODIUM 1 GM VIAL ONE (09:59)
[2021-07-17] MEDS: CEFTRIAXONE 1 GM in DEXTROSE 5%-WATER - 50 ML IVPB SCH (10:05)
[2021-07-17 10:09] LABS: BLOOD UREA NITROGEN 12.4 mg/dL (7-18)
[2021-07-17 10:12] LABS: CREATININE 0.9 mg/dL (0.55-1.3)
[2021-07-17] MEDS ORDERED: CYANOCOBALAMIN (VITAMIN B-12) 1000 MCG/1 ML VIAL IM ONE (10:19)
[2021-07-17] MEDS ORDERED: PT OWN MED DRAWER 7, Y5N ONE (11:28)
[2021-07-18 00:43] LABS: ANION GAP 11 MMOL/L (8-16); BLOOD UREA NITROGEN 17.4 mg/dL (7-18); CALCIUM 8.7 mg/dL (8.5-10.1); CO2 31 mmol/L (21-32); CREATININE 1.3 mg/dL (0.55-1.3); GLUCOSE,RANDOM 151 mg/dL (74-106); MAGNESIUM 1.4 mg/dL (1.8-2.4); SGOT/AST 44 U/L (15-37); SGPT/ALT 34 U/L (13-61); SODIUM 136 mmol/L (136-145)
[2021-07-21 17:11] LABS: METHYLMALONIC ACID- 132 nmol/L (0-378)
== END 2021-07-17 12:22 | disposition home or self-care (01) | DRG 683 ==
LOC: JER 20:44 → JERBED 07-15 02:27 → J8W 07-15 18:02
PROVIDERS: ADMIT Hospitalist; ATTEND Family Medicine
DX: N17.9 Acute kidney failure, unspecified (principal); N39.0 Urinary tract infection, site not specified; E87.1 Hypo-osmolality and hyponatremia; B96.20 Unspecified Escherichia coli [E. coli] as the cause of diseases classified elsewhere; I10 Essential (primary) hypertension; E78.5 Hyperlipidemia, unspecified; Z98.84 Bariatric surgery status; D69.6 Thrombocytopenia, unspecified; D64.9 Anemia, unspecified; E87.6 Hypokalemia; E83.42 Hypomagnesemia; R53.1 Weakness; H40.9 Unspecified glaucoma
CPT/HCPCS: 36415; 71045-TC-FY; 74176-TC; 76775-TC; 76856-TC; 80048; 80053; 81003; 82525; 82550; 82553; 82570; 82607; 82746; 82962; 83615; 83735; 83921; 84100; 84156; 84300; 84439; 84443; 84481; 84484; 85025; 85610; 85730; 86708; 87040; 87086; 87186; 87340; 87517; 87902; 93005; 93010; 99285-25; C9803-CS; J1644; U0003; U0005

== ENCOUNTER 2021-09-18 17:58 | Observation (INO) | payer OTHER ==
[2021-09-18 18:33] VITALS: BMI 29.9
[2021-09-18 19:24] LABS: BASO % 1.2 % (0-2.0); EOS % 0.4 % (0-4.5); HEMATOCRIT 40.3 % (32.4-45.2); HEMOGLOBIN 13.3 GM/dL (10.7-15.3); LYMPH % 25.2 % (8-40); MCH 35.6 pg (25.7-33.7); MEAN CELL VOLUME 107.8 fl (80-96); MEAN PLT VOLUME 8.9 fl (7.5-11.1); MONO % 9.4 % (3.8-10.2); NEUT % 63.8 % (42.8-82.8); PLATELET COUNT 117 10^3/uL (134-434); RBC 3.73 M/mm3 (3.60-5.2); RDW 14.7 % (11.6-15.6); WHITE BLOOD COUNT 4.1 K/mm3 (4.0-10.0)
[2021-09-18 19:26] LABS: INR 1.23 (0.83-1.09); PROTHROMBIN TIME (PATIENT) 14.2 SEC (9.7-13.0)
[2021-09-18 19:29] LABS: ACTIVATED PTT 25.5 SECONDS (25.2-36.5)
[2021-09-18 19:38] LABS: CALCIUM 9.4 mg/dL (8.5-10.1)
[2021-09-18 19:39] LABS: ALBUMIN 3.7 g/dl (3.4-5.0); BLOOD UREA NITROGEN 16.4 mg/dL (7-18); MAGNESIUM 1.6 mg/dL (1.8-2.4)
[2021-09-18] MEDS ORDERED: MAGNESIUM SULF 50% (8.12 MEQ/2 ML-1 GM VIAL) IVPB ONE (19:40)
[2021-09-18 19:42] LABS: PHOSPHOROUS 3.4 mg/dL (2.5-4.9)
[2021-09-18 19:43] LABS: TOT PROT 6.4 g/dl (6.4-8.2)
[2021-09-18 19:44] LABS: BILIRUBIN,TOTAL 1.8 mg/dL (0.2-1)
[2021-09-18] MEDS ORDERED: MAGNESIUM SULFATE IN WATER 2 GM/50 ML IVPB IVPB ONE (19:50)
[2021-09-18 22:26] LABS: ANISOCYTOSIS 2+; MACROCYTOSIS 2+; OVALOCYTE 1+
[2021-09-19 06:57] LABS: EPI CELLS 23 /uL (0-25.1); HYALINE CASTS 9 /uL (0-3.1); PH,URINE 5.5 (5.0-8.0); URINE APPEARANCE CLEAR; URINE BACTERIA 43 /uL (0-1359); URINE BILIRUBIN 1+ (NEGATIVE); URINE COLOR DK YELLOW; URINE GLUCOSE (UA) NEGATIVE (NEGATIVE); URINE KETONE TRACE (NEGATIVE); URINE LEUK ESTERASE 2+ (NEGATIVE); URINE NITRITE NEGATIVE (NEGATIVE); URINE PROTEIN NEGATIVE (NEGATIVE); URINE RBC 11 /uL (0-23.9); URINE WBC 106 /uL (0-25.8)
[2021-09-19 07:33] LABS: BASO % 0.9 % (0-2.0); EOS % 0.5 % (0-4.5); HEMATOCRIT 39.3 % (32.4-45.2); HEMOGLOBIN 13.1 GM/dL (10.7-15.3); LYMPH % 36.9 % (8-40); MCH 35.7 pg (25.7-33.7); MCHC 33.3 g/dl (32.0-36.0); MEAN CELL VOLUME 107.2 fl (80-96); MONO % 11.7 % (3.8-10.2); PLATELET COUNT 107 10^3/uL (134-434); RBC 3.66 M/mm3 (3.60-5.2); RDW 14.8 % (11.6-15.6); WHITE BLOOD COUNT 4.5 K/mm3 (4.0-10.0)
[2021-09-19] MEDS: SODIUM CHLORIDE 1,000 ML IV SCH (07:45)
[2021-09-19 07:49] LABS: CALCIUM 8.9 mg/dL (8.5-10.1)
[2021-09-19 07:50] LABS: MAGNESIUM 2.1 mg/dL (1.8-2.4)
[2021-09-19 07:53] LABS: CREATININE 0.9 mg/dL (0.55-1.3)
[2021-09-19] MEDS ORDERED: TIMOLOL 0.25% OPHTHALMIC SOL 5 ML BOTTLE OU SCH (10:00)
[2021-09-19] MEDS ORDERED: POLYETHYLENE GLYCOL (HEALTHYLAX) 3350 17 GM PACKET PO PRN (10:44)
[2021-09-19] MEDS: MECLIZINE HCL 12.5 MG TABLET PO SCH ×2 (12:44→19:03)
[2021-09-19] MEDS ORDERED: MECLIZINE HCL 12.5 MG TABLET ONE ×2 (14:06→18:58)
[2021-09-19 15:02] LABS: CHOLESTEROL 175 mg/dL (50-200); TRIGLYCERIDES 77 mg/dL (0-150)
[2021-09-19 15:03] LABS: LDL CHOLESTEROL (ONLY SJRH) 63 mg/dL (5-100)
[2021-09-19 15:06] LABS: HDL CHOLESTEROL 105 mg/dL (40-60)
[2021-09-19 18:07] LABS: SARS-CoV-2 NAA Not Detected (Not Detected)
[2021-09-19] MEDS: APIXABAN 5 MG TABLET PO SCH (21:13)
[2021-09-20] MEDS: MECLIZINE HCL 12.5 MG TABLET PO SCH ×5 (00:07→23:31)
[2021-09-20 09:51] LABS: BASO % 1.6 % (0-2.0); EOS % 1.8 % (0-4.5); HEMATOCRIT 40.3 % (32.4-45.2); HEMOGLOBIN 13.7 GM/dL (10.7-15.3); LYMPH % 35.7 % (8-40); MCH 36.7 pg (25.7-33.7); MEAN CELL VOLUME 107.9 fl (80-96); MEAN PLT VOLUME 8.5 fl (7.5-11.1); MONO % 10.4 % (3.8-10.2); NEUT % 50.5 % (42.8-82.8); PLATELET COUNT 101 10^3/uL (134-434); RBC 3.74 M/mm3 (3.60-5.2); WHITE BLOOD COUNT 4.6 K/mm3 (4.0-10.0)
[2021-09-20] MEDS ORDERED: metoPROLOL SUCCINATE 25 MG TAB.SR.24H (FP) PO SCH (10:00)
[2021-09-20 10:01] LABS: CALCIUM 8.7 mg/dL (8.5-10.1)
[2021-09-20 10:02] LABS: ALBUMIN 3.3 g/dl (3.4-5.0); BLOOD UREA NITROGEN 13.1 mg/dL (7-18)
[2021-09-20 10:05] LABS: CREATININE 0.8 mg/dL (0.55-1.3); TOT PROT 5.8 g/dl (6.4-8.2)
[2021-09-20 10:07] LABS: BILIRUBIN,TOTAL 1.6 mg/dL (0.2-1)
[2021-09-20] MEDS: ACETAMINOPHEN 325 MG TABLET (FP) PO PRN ×2 (11:10→21:23)
[2021-09-20] MEDS: APIXABAN 5 MG TABLET PO SCH ×2 (11:10→21:22)
[2021-09-20] MEDS: SODIUM CHLORIDE 1,000 ML IV SCH (11:10)
[2021-09-20] MEDS: MIDODRINE HCL 2.5 MG TABLET PO SCH ×3 (11:14→19:12)
[2021-09-20] MEDS: LOPERAMIDE HCL 2 MG CAPSULE PO PRN (14:41)
[2021-09-21] MEDS: MECLIZINE HCL 12.5 MG TABLET PO SCH ×3 (05:56→20:01)
[2021-09-21] MEDS: SODIUM CHLORIDE 1,000 ML IV SCH (06:47)
[2021-09-21] MEDS: APIXABAN 5 MG TABLET PO SCH ×2 (09:50→21:18)
[2021-09-21] MEDS: MIDODRINE HCL 2.5 MG TABLET PO SCH ×2 (10:17→20:01)
[2021-09-22] MEDS: MECLIZINE HCL 12.5 MG TABLET PO SCH ×3 (00:56→13:13)
[2021-09-22] MEDS: MIDODRINE HCL 2.5 MG TABLET PO SCH (09:19)
[2021-09-22] MEDS: APIXABAN 5 MG TABLET PO SCH (09:20)
[2021-09-22] MEDS: LOPERAMIDE HCL 2 MG CAPSULE PO PRN (13:12)
[2021-09-22 15:57] VITALS: BP 139/93; PULSE 79; TEMP 97.9
== END 2021-09-22 17:52 | disposition home or self-care (01) ==
LOC: JER 17:58 → JERBED 19:23 → J4S 09-19 20:10
PROVIDERS: ADMIT Internal Medicine; ATTEND Family Medicine
PROC: 3E033GC Introduction of Other Therapeutic Substance into Peripheral Vein, Percutaneous Approach (ICD-10-PCS; principal; 2021-09-18)
DX: Z87.891 Personal history of nicotine dependence (principal); Z98.84 Bariatric surgery status; Z90.79 Acquired absence of other genital organ(s); Z88.6 Allergy status to analgesic agent; E78.5 Hyperlipidemia, unspecified; D69.6 Thrombocytopenia, unspecified; E04.1 Nontoxic single thyroid nodule; K92.1 Melena; Z20.822 Contact with and (suspected) exposure to COVID-19; I48.91 Unspecified atrial fibrillation; K92.2 Gastrointestinal hemorrhage, unspecified; Z29.9 Encounter for prophylactic measures, unspecified; E11.9 Type 2 diabetes mellitus without complications; H40.9 Unspecified glaucoma
CPT/HCPCS: 36415; 70450-TC; 70551-TC; 71045-TC-FY; 74178-TC; 74181-TC; 80048; 80053; 80061; 81003; 82272; 83605; 83735; 84100; 84443; 84484; 85025; 85610; 85730; 86850; 86900; 86901; 87086; 93005; 93010; 96374; 97116-GP; 97161-GP; 99285-25; C9803; G0378; U0003; U0005

== ENCOUNTER 2022-02-15 09:46 | Emergency (ER) | payer OTHER ==
[2022-02-15 09:53] VITALS: BMI 29.4
[2022-02-15] MEDS ORDERED: BEBTELOVIMAB (EUA) 175 MG/2 ML VIAL IVPUSH ONE (10:14)
[2022-02-15] MEDS ORDERED: ACETAMINOPHEN 500 MG TABLET (FP) PO ONE (10:31)
[2022-02-15] MEDS ORDERED: ACETAMINOPHEN 500 MG TABLET (FP) ONE (10:53)
[2022-02-15 12:33] VITALS: BP 166/78; PULSE 72; RESP 19; TEMP 98.9
== END 2022-02-15 13:05 | disposition home or self-care (01) ==
LOC: JER 09:46
PROC: 3E033GC Introduction of Other Therapeutic Substance into Peripheral Vein, Percutaneous Approach (ICD-10-PCS; principal; 2022-02-15)
DX: U07.1 COVID-19 (principal)
CPT/HCPCS: 99284-25; M0222; Q0222

== ENCOUNTER 2023-01-17 11:26 | Day surgery (SDC) | payer OTHER ==
[2023-01-17] MEDS ORDERED: IRON SUCROSE INJECTION 200 MG in SODIUM CHLORIDE 100 ML IVPB ONE (12:00)
[2023-01-17 12:47] VITALS: BP 110/58; PULSE 79; RESP 18; TEMP 98.3
== END 2023-01-17 12:49 | disposition home or self-care (01) ==
LOC: FINFUSION 11:26 → FM/S 11:39 → FINFUSION 12:49
PROVIDERS: ATTEND Family Medicine
PROC: 3E033GC Introduction of Other Therapeutic Substance into Peripheral Vein, Percutaneous Approach (ICD-10-PCS; principal; 2023-01-17)
DX: D50.9 Iron deficiency anemia, unspecified (principal)
CPT/HCPCS: 96365; J1756

== ENCOUNTER 2023-02-17 11:58 | Day surgery (SDC) | payer OTHER ==
[2023-02-17] MEDS ORDERED: IRON SUCROSE INJECTION 200 MG in SODIUM CHLORIDE 100 ML IVPB ONE (12:45)
[2023-02-17 14:12] VITALS: BP 96/56; PULSE 70; RESP 18; TEMP 98.1
== END 2023-02-17 14:30 | disposition home or self-care (01) ==
LOC: FINFUSION 11:58 → FM/S 11:58 → FINFUSION 14:30
PROVIDERS: ATTEND Family Medicine
PROC: 3E033GC Introduction of Other Therapeutic Substance into Peripheral Vein, Percutaneous Approach (ICD-10-PCS; principal; 2023-02-17)
DX: D50.9 Iron deficiency anemia, unspecified (principal)
CPT/HCPCS: 96365; J1756

== ENCOUNTER 2023-02-24 11:52 | Day surgery (SDC) | payer OTHER ==
[2023-02-24 12:33] VITALS: RESP 16; TEMP 97.7
[2023-02-24] MEDS ORDERED: IRON SUCROSE INJECTION 200 MG in SODIUM CHLORIDE 100 ML IVPB ONE (12:45)
[2023-02-24 13:50] VITALS: BP 96/54; PULSE 60
== END 2023-02-24 13:58 | disposition home or self-care (01) ==
LOC: FINFUSION 11:52 → FM/S 11:56 → FINFUSION 13:58
PROVIDERS: ATTEND Family Medicine
PROC: 3E033GC Introduction of Other Therapeutic Substance into Peripheral Vein, Percutaneous Approach (ICD-10-PCS; principal; 2023-02-24)
DX: D50.9 Iron deficiency anemia, unspecified (principal)
CPT/HCPCS: 96365; J1756

== ENCOUNTER 2023-05-22 11:00 | Inpatient (IN) | payer OTHER ==
[2023-05-22 13:23] LABS: INR 1.38 (0.83-1.09)
[2023-05-22 13:26] LABS: ACTIVATED PTT 31.7 SECONDS (25.2-36.5); BASO % 1.9 % (0-2.0); EOS % 1.4 % (0-4.5); HEMATOCRIT 33.9 % (32.4-45.2); HEMOGLOBIN 10.1 GM/dL (10.7-15.3); LYMPH % 20.4 % (8-40); MCHC 29.7 g/dl (32.0-36.0); MEAN CELL VOLUME 87.4 fl (80-96); MEAN PLT VOLUME 8.3 fl (7.5-11.1); MONO % 13.1 % (3.8-10.2); NEUT % 63.2 % (42.8-82.8); PLATELET COUNT 202 10^3/uL (134-434); RBC 3.88 M/mm3 (3.60-5.2); RDW 20.5 % (11.6-15.6); WHITE BLOOD COUNT 4.9 K/mm3 (4.0-10.0)
[2023-05-22] MEDS ORDERED: CEFTRIAXONE 1,000 MG in DEXTROSE 5%-WATER - 50 ML IVPB ONE (13:36)
[2023-05-22] MEDS ORDERED: AZITHROMYCIN IVPB 500 MG in DEXTROSE 5%-WATER - 250 ML IVPB ONE (13:36)
[2023-05-22] MEDS ORDERED: SODIUM CHLORIDE 0.9% 500 ML INFUS.BAG IV ONE (13:40)
[2023-05-22 13:46] LABS: CALCIUM 9.1 mg/dL (8.5-10.1)
[2023-05-22 13:47] LABS: ALBUMIN 3.2 g/dl (3.4-5.0); BLOOD UREA NITROGEN 23.5 mg/dL (7-18)
[2023-05-22 13:52] LABS: BILIRUBIN,TOTAL 0.6 mg/dL (0.2-1); TOT PROT 6.1 g/dl (6.4-8.2)
[2023-05-22] MEDS ORDERED: CEFTRIAXONE 1 GM/50 ML BAG ONE (14:32)
[2023-05-22 14:40] LABS: ANISOCYTOSIS 2+; MACROCYTOSIS 0; OVALOCYTE 2+
[2023-05-22] MEDS ORDERED: AZITHROMYCIN IVPB 500 MG/250 ML BAG IVPB ONE (14:58)
[2023-05-22 19:33] VITALS: BMI 28.0
[2023-05-22] MEDS: MIDODRINE HCL 2.5 MG TABLET PO SCH (20:47)
[2023-05-22] MEDS: MECLIZINE HCL 12.5 MG TABLET PO SCH ×2 (20:47→23:46)
[2023-05-22] MEDS: APIXABAN 5 MG TABLET PO SCH (21:35)
[2023-05-23] MEDS: EMPAGLIFLOZIN (JARDIANCE) 10 MG TABLET PO SCH (06:32)
[2023-05-23] MEDS: MECLIZINE HCL 12.5 MG TABLET PO SCH ×4 (06:32→23:58)
[2023-05-23] MEDS ORDERED: LEVOTHYROXINE NA 88 MCG TABLET (FP) PO SCH (07:00)
[2023-05-23] MEDS: FUROSEMIDE 20 MG TABLET (FP) PO SCH (09:32)
[2023-05-23] MEDS: SPIRONOLACTONE 25 MG TABLET PO SCH (09:32)
[2023-05-23] MEDS: ALLOPURINOL 100 MG TABLET (FP) PO SCH (09:32)
[2023-05-23] MEDS: APIXABAN 5 MG TABLET PO SCH ×2 (09:33→21:33)
[2023-05-23] MEDS: CEFTRIAXONE 1 GM in DEXTROSE 5%-WATER - 50 ML IVPB SCH (09:36)
[2023-05-23] MEDS: MIDODRINE HCL 2.5 MG TABLET PO SCH ×4 (09:36→18:49)
[2023-05-23 09:51] LABS: HEMATOCRIT 34.4 % (32.4-45.2); HEMOGLOBIN 10.2 G/dL (10.7-15.3); MCH 26.4 pg (25.7-33.7); MCHC 29.5 g/dl (32.0-36.0); MEAN CELL VOLUME 89.5 fl (80-96); MEAN PLT VOLUME 9.1 fl (7.5-11.1); PLATELET COUNT 207.6 10^3/uL (134-434); RBC 3.84 10^6/uL (3.60-5.2)
[2023-05-23 10:02] LABS: ALBUMIN 3.2 g/dl (3.4-5.0); BILIRUBIN,TOTAL 0.5 mg/dl (0.2-1); CALCIUM 8.8 mg/dl (8.5-10.1); MAGNESIUM 1.7 mg/dL (1.8-2.4); POTASSIUM 4.1 mmol/L (3.5-5.1); TOT PROT 5.3 g/dl (6.4-8.2)
[2023-05-23] MEDS: CALCITONIN - SALMON SYNTHETIC 200 UNITS/SPRAY NS SCH ×2 (10:07→10:44)
[2023-05-23 12:06] LABS: EPITHELIAL CELLS 0-5 /hpf
[2023-05-23] MEDS ORDERED: MAG HYDROX/AL HYDROX/SIMETH 30 ML UNIT-DOSE CUP PO PRN (15:28)
[2023-05-23] MEDS: MAGNESIUM OXIDE 400 MG TABLET (FP) PO SCH (21:33)
[2023-05-23] MEDS: FAMOTIDINE 20 MG TABLET PO SCH (21:34)
[2023-05-24] MEDS: LEVOTHYROXINE NA 100 MCG TABLET (FP) PO SCH (06:46)
[2023-05-24] MEDS: EMPAGLIFLOZIN (JARDIANCE) 10 MG TABLET PO SCH (06:47)
[2023-05-24] MEDS: MECLIZINE HCL 12.5 MG TABLET PO SCH ×3 (06:47→17:16)
[2023-05-24] MEDS: SPIRONOLACTONE 25 MG TABLET PO SCH (09:24)
[2023-05-24] MEDS: MIDODRINE HCL 2.5 MG TABLET PO SCH ×4 (09:25→18:50)
[2023-05-24] MEDS: FUROSEMIDE 20 MG TABLET (FP) PO SCH (09:25)
[2023-05-24] MEDS: CEFTRIAXONE 1 GM in DEXTROSE 5%-WATER - 50 ML IVPB SCH (09:57)
[2023-05-24] MEDS: CALCITONIN - SALMON SYNTHETIC 200 UNITS/SPRAY NS SCH (09:58)
[2023-05-24] MEDS: ALLOPURINOL 100 MG TABLET (FP) PO SCH (09:58)
[2023-05-24] MEDS: APIXABAN 5 MG TABLET PO SCH ×2 (09:58→21:20)
[2023-05-24] MEDS: FAMOTIDINE 20 MG TABLET PO SCH ×2 (09:58→21:20)
[2023-05-24] MEDS: MAGNESIUM OXIDE 400 MG TABLET (FP) PO SCH ×2 (09:58→21:20)
[2023-05-24] MEDS ORDERED: SODIUM CHLORIDE 500 ML IV STA (10:02)
[2023-05-24] MEDS: AZITHROMYCIN IVPB 500 MG/250 ML BAG IVPB SCH (11:27)
[2023-05-25] MEDS: MECLIZINE HCL 12.5 MG TABLET PO SCH ×4 (00:21→18:20)
[2023-05-25] MEDS: EMPAGLIFLOZIN (JARDIANCE) 10 MG TABLET PO SCH (06:00)
[2023-05-25] MEDS: LEVOTHYROXINE NA 100 MCG TABLET (FP) PO SCH (06:01)
[2023-05-25 07:46] LABS: HEMATOCRIT 36.2 % (32.4-45.2); HEMOGLOBIN 10.6 G/dL (10.7-15.3); MCH 26.2 pg (25.7-33.7); MCHC 29.3 g/dl (32.0-36.0); MEAN CELL VOLUME 89.5 fl (80-96); PLATELET COUNT 211.3 10^3/uL (134-434); RBC 4.04 10^6/uL (3.60-5.2); WHITE BLOOD COUNT 4.4 10^3/uL (4.0-10.8)
[2023-05-25 08:50] LABS: BILIRUBIN,TOTAL 0.4 mg/dl (0.2-1); CALCIUM 8.6 mg/dl (8.5-10.1); CREATININE 1.2 mg/dl (0.6-1.3); POTASSIUM 4.2 mmol/L (3.5-5.1); TOT PROT 5.1 g/dl (6.4-8.2)
[2023-05-25] MEDS: MIDODRINE HCL 2.5 MG TABLET PO SCH ×3 (09:45→18:20)
[2023-05-25] MEDS: APIXABAN 5 MG TABLET PO SCH ×2 (09:45→21:23)
[2023-05-25] MEDS: FAMOTIDINE 20 MG TABLET PO SCH ×2 (09:45→21:23)
[2023-05-25] MEDS: MAGNESIUM OXIDE 400 MG TABLET (FP) PO SCH ×2 (09:45→21:23)
[2023-05-25] MEDS: FUROSEMIDE 20 MG TABLET (FP) PO SCH (09:45)
[2023-05-25] MEDS: ALLOPURINOL 100 MG TABLET (FP) PO SCH (09:45)
[2023-05-25] MEDS: AZITHROMYCIN IVPB 500 MG/250 ML BAG IVPB SCH (09:46)
[2023-05-25] MEDS: CALCITONIN - SALMON SYNTHETIC 200 UNITS/SPRAY NS SCH (09:46)
[2023-05-25] MEDS: CEFTRIAXONE 1 GM in DEXTROSE 5%-WATER - 50 ML IVPB SCH (09:46)
[2023-05-25] MEDS: SPIRONOLACTONE 25 MG TABLET PO SCH (09:52)
[2023-05-25] MEDS: AMIODARONE HCL 200 MG TABLET PO SCH (11:54)
[2023-05-26] MEDS: MECLIZINE HCL 12.5 MG TABLET PO SCH ×3 (00:31→11:40)
[2023-05-26 01:55] VITALS: RESP 18
[2023-05-26 06:13] VITALS: PULSE 54
[2023-05-26] MEDS: LEVOTHYROXINE NA 100 MCG TABLET (FP) PO SCH (06:31)
[2023-05-26] MEDS: EMPAGLIFLOZIN (JARDIANCE) 10 MG TABLET PO SCH (06:31)
[2023-05-26] MEDS: CEFTRIAXONE 1 GM in DEXTROSE 5%-WATER - 50 ML IVPB SCH (09:22)
[2023-05-26] MEDS: AZITHROMYCIN IVPB 500 MG/250 ML BAG IVPB SCH (09:22)
[2023-05-26] MEDS: MIDODRINE HCL 2.5 MG TABLET PO SCH (09:23)
[2023-05-26] MEDS: ALLOPURINOL 100 MG TABLET (FP) PO SCH (09:23)
[2023-05-26] MEDS: MAGNESIUM OXIDE 400 MG TABLET (FP) PO SCH (09:23)
[2023-05-26] MEDS: FUROSEMIDE 20 MG TABLET (FP) PO SCH (09:23)
[2023-05-26] MEDS: FAMOTIDINE 20 MG TABLET PO SCH (09:23)
[2023-05-26] MEDS: AMIODARONE HCL 200 MG TABLET PO SCH (09:23)
[2023-05-26] MEDS: APIXABAN 5 MG TABLET PO SCH (09:23)
[2023-05-26] MEDS: CALCITONIN - SALMON SYNTHETIC 200 UNITS/SPRAY NS SCH (09:24)
[2023-05-26] MEDS ORDERED: THIAMINE HCL 100 MG TABLET (FP) PO SCH (10:00)
[2023-05-26 10:28] VITALS: BP 128/59; TEMP 98.1
[2023-05-26] MEDS: SPIRONOLACTONE 25 MG TABLET PO SCH (10:48)
== END 2023-05-26 13:24 | disposition home or self-care (01) | DRG 193 ==
LOC: JER 11:00 → FM/S 14:11 → JER 18:40 → FM/S 18:40
PROVIDERS: ADMIT Family Medicine; ATTEND Family Medicine
DX: J18.1 Lobar pneumonia, unspecified organism (principal); G92.8 Other toxic encephalopathy; J90 Pleural effusion, not elsewhere classified; I10 Essential (primary) hypertension; E11.39 Type 2 diabetes mellitus with other diabetic ophthalmic complication; E78.5 Hyperlipidemia, unspecified; I48.91 Unspecified atrial fibrillation; Z98.84 Bariatric surgery status; H40.9 Unspecified glaucoma; E03.9 Hypothyroidism, unspecified; E04.1 Nontoxic single thyroid nodule; D64.9 Anemia, unspecified; F10.10 Alcohol abuse, uncomplicated
CPT/HCPCS: 36415; 70450-TC; 70551-TC; 71045-TC-FY; 71250-TC; 72125-TC; 80053; 81003; 81015; 82607; 82746; 82962; 83036; 83735; 84439; 84443; 84481; 84484; 85025; 85027; 85610; 85730; 86850; 86900; 86901; 87040; 87086; 87899; 93005; 93010; 97116-GP; 97161-GP; 99285-25